=== PATIENT | female | born 1995 | race Caucasian/White ===

== ENCOUNTER → 2018-04-17 | Outpatient (CLI) | payer OTHER ==
--- NOTE | 2018-04-17 22:30 | MR ---
EXAMINATION TYPE: MR sacroiliac joints wo con DATE OF EXAM: 04/17/2018 COMPARISON: Prior MRI sacroiliac joints August 03, 2011 HISTORY: Sacroiliitis per order. Chronic pain per patient. Standard multiplanar, multisequence MRI departmental protocol Multiplanar, multisequence images of the pelvis focusing on the sacroiliac joints were acquired. FINDINGS: Sacroiliac joints 2 does show suspicious narrowing or widening. No significant spurring is seen. Bone marrow signal intensity is maintained without suspicious edema. Visualized sacral alae are intact. Visualized portion of the pelvis shows anteverted uterus. No concerning pelvic fluid collection is se en. No bowel dilatation is noted. IMPRESSION: No MRI evidence for sacroiliitis. No significant change from prior.
== END | disposition home or self-care (01) ==
LOC: RADMRIMAIN 21:35
PROVIDERS: ATTEND Physician Assistant Medical
DX: M46.1 Sacroiliitis, not elsewhere classified (principal)
CPT/HCPCS: 72195

== ENCOUNTER 2018-09-04 22:14 | Observation (INO) | payer OTHER ==
[2018-09-04] MEDS ORDERED: SODIUM CHLORIDE 0.9% 1,000 ML IV STA (22:48)
--- NOTE | 2018-09-04 22:48 | ED ---
Chest Pain HPI - General Chief Complaint: Chest Pain Stated Complaint: Chest/Abd pain Source: patient, RN notes reviewed, old records reviewed Mode of arrival: ambulatory - History of Present Illness Initial Comments: This is a 23-year-old female the ER today. Patient presents today with chest pain. Patient has history of chest pain history of fibromyalgia and occasionally smokes marijuana is on control. She recently did travel to urinate by plane. Patient denies fever no cough no congestion or shortness of breath. Pain is left-sided also into her abdomen left-sided chest. No prior history of sore pain. No modifying factors for pain MD Complaint: chest pain -: days(s) Onset: during rest, during exertion Pain Location: left chest Pain Radiation: abdomen Severity: moderate Severity scale (1-10): 5 Quality: aching Consistency: constant Improves With: nothing Worsens With: nothing Treatments Prior to Arrival: none - Related Data Home Medications Medication Instructions Recorded Confirmed Albuterol Inhaler [Ventolin Hfa 1 - 2 puff INHALATION RT-QID PRN 09/04/18 09/04/18 Inhaler] Setlakin 0.15/0.03 1 tab PO DAILY 09/04/18 09/04/18 Allergies Allergy/AdvReac Type Severity Reaction Status Date / Time clindamycin Allergy Dyspnea Verified 09/04/18 23:07 Penicillins Allergy Dyspnea Verified 09/04/18 23:07 sulfamethoxazole Allergy Dyspnea Verified 09/04/18 23:07 [From Bactrim] trimethoprim [From Bactrim] Allergy Dyspnea Verified 09/04/18 23:07 prednisone AdvReac Confusion Verified 09/04/18 23:07 Review of Systems ROS Statement: Those systems with pertinent positive or pertinent negative responses have been documented in the HPI. ROS Other: All systems not noted in ROS Statement are negative. EKG Findings - EKG Comments: EKG Findings:: EKG shows sinus tachycardia 4, HI 164, QRS 80, QTC 444 Past Medical History Past Medical History: Asthma Additional Past Medical History / Comment(s): fibromyaliga. Menners. spinal issue History of Any Multi-Drug Resistant Organisms: None Reported Past Surgical History: No Surgical Hx Reported Past Psychological History: No Psychological Hx Reported Smoking Status: Never smoker Past Alcohol Use History: Rare Past Drug Use History: Marijuana - Past Family History Mother Family Medical History: Asthma, Fibromyalgia General Exam General appearance: alert, in no apparent distress, anxious Head exam: Present: atraumatic, normocephalic, normal inspection Eye exam: Present: normal appearance, PERRL, EOMI. Absent: scleral icterus, conjunctival injection, periorbital swelling ENT exam: Present: normal exam, mucous membranes moist Neck exam: Present: normal inspection. Absent: tenderness, meningismus, lymphadenopathy Respiratory exam: Present: normal lung sounds bilaterally. Absent: respiratory distress, wheezes, rales, rhonchi, stridor Cardiovascular Exam: Present: normal rhythm, tachycardia, normal heart sounds. Absent: systolic murmur, diastolic murmur, rubs, gallop, clicks GI/Abdominal exam: Present: soft, normal bowel sounds. Absent: distended, tenderness, guarding, rebound, rigid Extremities exam: Present: normal inspection, full ROM, normal capillary refill. Absent: tenderness, pedal edema, joint swelling, calf tenderness Back exam: Present: normal inspection Neurological exam: Present: alert, oriented X3, CN II-XII intact Psychiatric exam: Present: normal affect, normal mood Skin exam: Present: warm, dry, intact, normal color. Absent: rash Course Vital Signs 09/04/18 09/05/18 22:26 00:31 Temperature 98.3 F 97.3 F L Pulse Rate 103 H 108 H Respiratory 18 17 Rate Blood Pressure 125/75 121/84 O2 Sat by Pulse 98 100 Oximetry - Reevaluation(s) Reevaluation #1: 09/04/18 23:41 Medical records reviewed Chest Pain MDM - MDM 23 female the ER, patient presents ER for evaluation of chest pain chest pain tachycardia. Patient be admitted for cardiac observation Disposition Clinical Impression: Chest pain, Tachycardia Disposition: ADMITTED IP TO THIS HOSP Condition: Good Is patient prescribed a controlled substance at d/c from ED?: No
[2018-09-04 23:45] LABS: Basophils % (A) 0 %; Eosinophils # (A) 0.1 k/uL (0-0.7); Eosinophils % (A) 1 %; HCT 35.9 % (34.0-46.0); HGB 11.5 gm/dL (11.4-16.0); Lymphocytes # (A) 1.4 k/uL (1.0-4.8); Lymphocytes % (A) 18 %; MCH 27.8 pg (25.0-35.0); MCV 86.9 fL (80.0-100.0); Mean Platelet Volume 7.4; Monocytes # (A) 0.5 k/uL (0-1.0); Monocytes % (A) 7 %; Neutrophils # (A) 5.7 k/uL (1.3-7.7); Neutrophils % (A) 71 %; Platelet Count 237 k/uL (150-450); RBC 4.13 m/uL (3.80-5.40); RDW 13.8 % (11.5-15.5); WBC 7.9 k/uL (3.8-10.6)
[2018-09-04 23:54] LABS: ALT 17 U/L (9-52); AST 18 U/L (14-36); Albumin 3.5 g/dL (3.5-5.0); Alkaline Phosphatase 36 U/L (38-126); Anion Gap 6 mmol/L; Blood Urea Nitrogen 6 mg/dL (7-17); Calcium 9.2 mg/dL (8.4-10.2); Carbon Dioxide 29 mmol/L (22-30); Chloride 104 mmol/L (98-107); Glucose 106 mg/dL (74-99); Lipase 179 U/L (23-300); Magnesium 1.9 mg/dL (1.6-2.3); Sodium 139 mmol/L (137-145); Total Bilirubin 0.3 mg/dL (0.2-1.3); Total Protein 6.4 g/dL (6.3-8.2)
[2018-09-05 00:01] LABS: INR 0.8 (<1.2); Partial Thromboplastin Time 24.7 sec (22.0-30.0); Prothrombin Time 9.4 sec (9.0-12.0)
--- NOTE | 2018-09-05 00:06 | CT ---
EXAM: CT Angiography Chest With Intravenous Contrast CLINICAL HISTORY: Pain. TECHNIQUE: Axial computed tomographic angiography images of the chest with intravenous contrast using pulmonary embolism protocol. MIP reconstructed images were created and reviewed. Coronal and sagittal reformatted images were created and reviewed. CTDI is 20.47 mGy and DLP is 718.4 mGy-cm. This CT exam was performed using one or more of the following dose reduction techniques: automated exposure control, adjustment of the mA and/or kV according to patient size, and/or use of iterative reconstruction technique. COMPARISON: No relevant prior studies available. FINDINGS: Pulmonary arteries: Unremarkable. No pulmonary embolism. Aorta: No acute findings. No thoracic aortic aneurysm or dissection. Lungs: Unremarkable. No mass. No consolidation. Pleural space: Unremarkable. No significant effusion. No pneumothorax. Heart: Unremarkable. No cardiomegaly. No significant pericardial effusion. No evidence of RV dysfunction. Bones/joints: No acute fracture. No dislocation. Soft tissues: Unremarkable. Lymph nodes: Unremarkable. No enlarged lymph nodes. IMPRESSION: Normal CTA of the chest. No pulmonary embolism, thoracic aortic aneurysm or dissection.
--- NOTE | 2018-09-05 00:11 | CT ---
EXAM: CT Abdomen and Pelvis With Intravenous Contrast CLINICAL HISTORY: Pain. TECHNIQUE: Axial computed tomography images of the abdomen and pelvis with intravenous contrast. Coronal and sagittal reformatted images were created and reviewed. CTDI is 20.47 mGy and DLP is 718.4 mGy-cm. This CT exam was performed using one or more of the following dose reduction techniques: automated exposure control, adjustment of the mA and/or kV according to patient size, and/or use of iterative reconstruction technique. COMPARISON: No relevant prior studies available. FINDINGS: Lung bases: Unremarkable. No mass. No consolidation. ABDOMEN: Liver: Unremarkable. No mass. Gallbladder and bile ducts: Unremarkable. No radiopaque calculi. No biliary ductal dilation. Pancreas: Unremarkable. No ductal dilation. No mass. No adjacent inflammatory changes. Spleen: Unremarkable. No splenomegaly. Adrenals: Unremarkable. No mass. Kidneys and ureters: Unremarkable. No hydronephrosis or ureteral calculus. No solid mass. Stomach and bowel: Fluid in the proximal colon which may indicate diarrheal state. Suspect areas of minimal bowel wall thickening. No bowel obstruction. PELVIS: Appendix: No findings to suggest acute appendicitis. Bladder: Unremarkable. No mass or wall thickening. Reproductive: Unremarkable as visualized. ABDOMEN and PELVIS: Intraperitoneal space: Unremarkable. No free air. No significant fluid collection. Bones/joints: No acute fracture. No dislocation. Soft tissues: Unremarkable. Vasculature: Unremarkable. No abdominal aortic aneurysm. Lymph nodes: Unremarkable. No enlarged lymph nodes. IMPRESSION: 1. Fluid in the proximal colon which may indicate diarrheal state along with suspected areas of minimal bowel wall thickening. Findings may represent nonspecific enteritis/enterocolitis in the appropriate clinical setting. Correlate clinically. 2. No bowel obstruction, free fluid or free air. 3. No evidence of acute appendicitis.
[2018-09-05] MEDS ORDERED: ASPIRIN 81 MG PO STA (00:25)
[2018-09-05] MEDS ORDERED: NITROGLYCERIN SL TABS 0.4 MG TAB SUBLINGUAL PRN (00:25)
[2018-09-05] MEDS ORDERED: SODIUM CHLORIDE 0.9% 1,000 ML IV STA (00:27)
[2018-09-05] MEDS ORDERED: KETOROLAC 30 MG/ML 1 ML VIAL IVP STA (00:27)
[2018-09-05] MEDS: SODIUM CHLORIDE 0.9% 1,000 ML IV SCH ×3 (02:38→20:30)
--- NOTE | 2018-09-05 09:18 | P.CRDCN ---
History of Present Illness History of present illness: Patient interviewed and examined. No cardiac murmurs or rub Abdominal symptoms and likely referred pain to the left scapula and shoulder Experiencing abdominal symptoms at this time Twelve-lead ECG shows normal sinus rhythm no evidence for pericarditis 2-D echo and Doppler study pending Follow-up with Dr. Candelario in 6 weeks Past Medical History Past Medical History: Asthma Additional Past Medical History / Comment(s): fibromyaliga. Meiniere's. ankylosing spondylitis History of Any Multi-Drug Resistant Organisms: None Reported Past Surgical History: No Surgical Hx Reported Past Anesthesia/Blood Transfusion Reactions: Unable to Obtain Additional Past Anesthesia/Blood Transfusion Reaction / Comment(s): Pt has never had surgery or blood transfusion Past Psychological History: No Psychological Hx Reported, Anxiety, Depression Smoking Status: Never smoker Past Alcohol Use History: Rare Past Drug Use History: Marijuana Additional Drug Use History / Comment(s): Last monday. - Past Family History Mother Family Medical History: Asthma, Fibromyalgia Medications and Allergies Home Medications Medication Instructions Recorded Confirmed Type Albuterol Inhaler [Ventolin Hfa 1 - 2 puff INHALATION RT-QID PRN 09/04/18 09/04/18 History Inhaler] Setlakin 0.15/0.03 1 tab PO DAILY 09/04/18 09/04/18 History Allergies Allergy/AdvReac Type Severity Reaction Status Date / Time clindamycin Allergy Dyspnea Verified 09/04/18 23:07 Penicillins Allergy Dyspnea Verified 09/04/18 23:07 sulfamethoxazole Allergy Dyspnea Verified 09/04/18 23:07 [From Bactrim] trimethoprim [From Bactrim] Allergy Dyspnea Verified 09/04/18 23:07 prednisone AdvReac Confusion Verified 09/04/18 23:07 Physical Exam Vitals: Vital Signs Temp Pulse Pulse Resp BP BP Pulse Ox 09/05/18 08:00 98.2 F 97 15 121/76 99 09/05/18 04:00 98.1 F 97 16 115/71 98 09/05/18 02:40 16 09/05/18 01:38 97.9 F 102 H 16 118/72 100 09/05/18 00:31 97.3 F L 108 H 17 121/84 100 09/04/18 22:26 98.3 F 103 H 18 125/75 98 Intake and Output 09/04/18 09/05/18 09/05/18 22:59 06:59 14:59 Other: Voiding Method Toilet # Voids 1 Weight 54.431 kg Results 09/04/18 23:09 09/04/18 23:09 Cardiac Enzymes 09/04/18 09/04/18 09/05/18 Range/Units 23:09 23:09 05:38 AST 18 (14-36) U/L Troponin I 0.027 0.021 (0.000-0.034) ng/mL Coagulation 09/04/18 Range/Units 23:09 PT 9.4 (9.0-12.0) sec APTT 24.7 (22.0-30.0) sec CBC 09/04/18 Range/Units 23:09 WBC 7.9 (3.8-10.6) k/uL RBC 4.13 (3.80-5.40) m/uL Hgb 11.5 (11.4-16.0) gm/dL Hct 35.9 (34.0-46.0) % Plt Count 237 (150-450) k/uL Comprehensive Metabolic Panel 09/04/18 Range/Units 23:09 Sodium 139 (137-145) mmol/L Potassium 4.0 (3.5-5.1) mmol/L Chloride 104 (98-107) mmol/L Carbon Dioxide 29 (22-30) mmol/L BUN 6 L (7-17) mg/dL Creatinine 0.61 (0.52-1.04) mg/dL Glucose 106 H (74-99) mg/dL Calcium 9.2 (8.4-10.2) mg/dL AST 18 (14-36) U/L ALT 17 (9-52) U/L Alkaline Phosphatase 36 L (38-126) U/L Total Protein 6.4 (6.3-8.2) g/dL Albumin 3.5 (3.5-5.0) g/dL Current Medications Generic Name Dose Route Start Last Admin Trade Name Freq PRN Reason Stop Dose Admin Sodium Chloride 1,000 mls @ 100 mls/hr 09/05/18 00:30 09/05/18 02:38 Saline 0.9% IV 100 mls/hr .Q10H BRIAN Administration Ibuprofen 400 mg 09/05/18 09:00 Motrin PO TID BRIAN Nitroglycerin 0.4 mg 09/05/18 00:25 Nitrostat SUBLINGUAL Q5M PRN Chest Pain Intake and Output 09/04/18 09/05/18 09/05/18 22:59 06:59 14:59 Other: Voiding Method Toilet # Voids 1 Weight 54.431 kg 09/04/18 23:09 09/04/18 23:09
[2018-09-05] MEDS: IBUPROFEN 400 MG TAB PO SCH ×3 (09:53→21:41)
--- NOTE | 2018-09-05 10:51 | ECHOF ---
Referral Reason:elevTrop MEASUREMENTS -------- HEIGHT: 165.1 cm WEIGHT: 54.4 kg BP: 115/71 RVIDd: 2.4 cm (< 3.3) IVSd: 0.7 cm (0.6 - 1.1) LVIDd: 3.7 cm (3.9 - 5.3) LVPWd: 0.9 cm (0.6 - 1.1) IVSs: 1.2 cm LVIDs: 2.2 cm LVPWs: 1.2 cm LA Diam: 2.5 cm (2.7 - 3.8) Ao Diam: 2.7 cm (2.0 - 3.7) AV Cusp: 1.7 cm (1.5 - 2.6) MV EXCURSION: 17.787 mm (> 18.000) MV EF SLOPE: 134 mm/s (70 - 150) EPSS: 0.5 cm MV E Julian: 0.92 m/s MV DecT: 228 ms MV A Julian: 0.74 m/s MV E/A Ratio: 1.25 RAP: 5.00 mmHg RVSP: 19.52 mmHg FINDINGS -------- Sinus rhythm. This was a technically excellent study. The left ventricular size is normal. Left ventricular wall thickness is normal. Overall left vent ricular systolic function is normal with, an EF between 65 - 70 %. The right ventricle is normal in size. The left atrial size is normal. The right atrium is normal in size. The aortic valve is trileaflet and appears structurally normal. Mild mitral regurgitation is present. Mild tricuspid regurgitation present. Right ventricular systolic pressure is normal at < 35 mmHg. There is no pulmonic regurgitation present. The aortic root size is normal. Normal inferior vena cava with normal inspiratory collapse consistent with estimated right atrial pre ssure of 5 mmHg. There is no pericardial effusion. CONCLUSIONS -------- 1. Sinus rhythm. 2. This was a technically excellent study. 3. The left ventricular size is normal. 4. Left ventricular wall thickness is normal. 5. Overall left ventricular systolic function is normal with, an EF between 65 - 70 %. 6. The right ventricle is normal in size. 7. The left atrial size is normal. 8. The right atrium is normal in size. 9. The aortic valve is trileaflet and appears structurally normal. 10. Mild mitral regurgitation is present. 11. Mild tricuspid regurgitation present. 12. Right ventricular systolic pressure is normal at < 35 mmHg. 13. There is no pulmonic regurgitation present. 14. The aortic root size is normal. 15. Normal inferior vena cava with normal inspiratory collapse consistent with estimated right atrial pressure of 5 mmHg. 16. There is no pericardial effusion. FOOD TECHNICIAN: Riri Caruso RDCS
[2018-09-05] MEDS ORDERED: ALBUTEROL NEBULIZED 2.5 MG/3 ML INHALATION PRN (15:27)
[2018-09-05 17:15] LABS: Amorphous Sediment,Urine Rare /hpf; Appearance,Urine Clear (Clear); Bilirubin,Urine Negative (Negative); Blood,Urine Small (Negative); Color,Urine Light Yellow; Glucose,Urine (UA) Negative (Negative); Ketones,Urine Negative (Negative); Leukocyte Esterase,Urine Negative (Negative); Mucus,Urine Rare /hpf; Nitrite,Urine Negative (Negative); Protein,Urine Negative (Negative); RBC,Urine 4 /hpf (0-5); Specific Gravity,Urine 1.007 (1.001-1.035); Squamous Epithelial Cell,Urine <1 /hpf (0-4); Urobilinogen,Urine <2.0 mg/dL (<2.0); WBC,Urine 1 /hpf (0-5)
[2018-09-05 17:20] LABS: Amphetamine Screen,Urine Not Detected (NotDetected); Barbiturate Screen,Urine Not Detected (NotDetected); Benzodiazepines Screen,Urine Not Detected (NotDetected); Cocaine Screen,Urine Not Detected (NotDetected); Methadone Screen, Urine Not Detected (NotDetected); Opiate Screen,Urine Not Detected (NotDetected); Oxycodone Screen, Urine Not Detected (NotDetected); Phencyclidine Screen,Urine Not Detected (NotDetected); Tricyclic Antidepressant,Urine Not Detected (NotDetected); Urn Cannabinoid Scrn Not Detected (NotDetected)
--- NOTE | 2018-09-05 17:40 | HP ---
HISTORY AND PHYSICAL CHIEF COMPLAINTS: Chest pain and diarrhea. HISTORY OF PRESENT ILLNESS: This 23-year-old woman with a past medical history of IBS, inflammatory bowel disease, history of Meniere's, ankylosing spondylitis, fibromyalgia, asthma, being followed by Dr. Luke in the outpatient setting, was complaining of left-sided chest pain and tachycardia. The patient came to [facility] and was admitted for further evaluation and treatment. Patient also complains of abdominal discomfort and diarrhea. The patient apparently went to a concert in [place] recently and ate some Czech food, according to her. There is no history of any fever, rigor or chills. No history of headache, loss of consciousness, seizures. The pain is reported as sharp in character and radiates to the shoulder. A CT scan of the abdomen and pelvis was done. A 2D echo was also done after admission. The CT scan showed fluid in the proximal colon, which indicates some minimal bowel wall thickening. The patient was admitted for further evaluation. There is no history of any fever, rigors or chills at this time. Third troponin was found to be 0.099. The patient is being closely monitored. PAST MEDICAL HISTORY: 1. Inflammatory bowel disease. 2. History of asthma. 3. Fibromyalgia. 4. Meniere's. 5. Ankylosing spondylitis. 6. Anxiety. 7. Depression. 8. History of THC. MEDICATIONS: Medications prior to admission include: 1. Setlakin. 2. Albuterol inhaler p.r.n. ALLERGIES: 1. CLINDAMYCIN. 2. PENICILLIN. 3. SULFAMETHOXAZOLE. 4. PREDNISONE. FAMILY HISTORY: History of asthma, fibromyalgia in the family. SOCIAL HISTORY: History of occasional alcohol, THC. No history of smoking. REVIEW OF SYSTEMS: ENT: No diminished hearing. No diminished vision. CARDIOVASCULAR SYSTEM: As mentioned earlier. RESPIRATORY SYSTEM: No cough, hemoptysis. GI: As mentioned earlier. : No dysuria or retention. NERVOUS SYSTEM: No numbness, weakness. ALLERGY/IMMUNOLOGY: No asthma, hayfever. MUSCULOSKELETAL: As mentioned earlier. HEMATOLOGY/ONCOLOGY: No history of anemia. ENDOCRINE: No history of diabetes, hypothyroidism. CONSTITUTIONAL: As mentioned earlier. DERMATOLOGY: Negative. RHEUMATOLOGY: Negative. PSYCHIATRY: As mentioned earlier. PHYSICAL EXAMINATION: Alert and oriented x3. Pulse is 97, blood pressure 121/76, respiration 15, temperature 98.2, pulse ox 99% on room air. HEENT: Conjunctivae normal. NECK: No jugular venous distention. CARDIOVASCULAR SYSTEM: S1, S2 muffled. RESPIRATORY SYSTEM: Breath sounds diminished at the bases. No rhonchi. No crackles. ABDOMEN: Soft, non-tender. No mass palpable. No guarding or rigidity. LEGS: No edema. No swelling. NERVOUS SYSTEM: Higher functions as mentioned earlier. Moves all 4 limbs. No focal motor or sensory deficit. LYMPHATICS: No lymph node palpable in neck, axillae or groin. SKIN: No ulcer, rash, bleeding. JOINTS: No active deforming arthropathy. LABS: CBC within normal limits. D-dimer is 1. Glucose 106. Troponin 0.099. CT scan of abdomen and pelvis noted. CT angio was negative for pulmonary embolism. The EKG showed sinus tachycardia, no acute abnormalities. ASSESSMENT: 1. Chest pain with troponin 0.099. Rule out acute non ST elevation myocardial infarction. 2. Diarrhea with inflammatory bowel disease. 3. History of asthma. 4. History of fibromyalgia. 5. History Meniere's disease. 6. History of ankylosing spondylitis. 7. History of anxiety, depression. 8. History of tetrahydrocannabinol. RECOMMENDATIONS AND DISCUSSION: In this 23-year-old woman who presented with multiple complex medical issues, we will monitor the patient closely, continue the current management, continue with symptomatic treatment. Otherwise at this time I recommend closely following with Cardiology. Possible stress test. Symptomatic treatment. Otherwise, I would also check stool for C difficile and continue to monitor. Prognosis guarded because of multiple complex medical issues. A copy of this dictation is being forwarded to Dr. Luke, who is the primary physician. MMODL / IJN: [id number] / MTDD
[2018-09-06 03:52] LABS: Cholesterol 109 mg/dL (<200); HDL Cholesterol 43 mg/dL (40-60); LDL Cholesterol,Calculated 51 mg/dL (0-99); Triglycerides 75 mg/dL (<150)
[2018-09-06] MEDS: SODIUM CHLORIDE 0.9% 1,000 ML IV SCH (05:38)
[2018-09-06 07:23] VITALS: RESP 16
[2018-09-06] MEDS: IBUPROFEN 400 MG TAB PO SCH ×2 (08:20→10:05)
[2018-09-06] MEDS ORDERED: ASPIRIN 325 MG TAB PO SCH (09:00)
--- NOTE | 2018-09-06 09:37 | P.PN ---
Subjective This is a pleasant 23-year-old female past medical history significant for fibromyalgia, irritable bowel syndrome and chronic daily marijuana use. She was seen and examined yesterday due to a 12-hour episode of chest pain. Her symptoms were atypical for angina and thought to be associated with an abdominal process in the presence of abdominal pain and diarrhea. Incidentally her third troponin came back to be elevated at 0.099. We ordered a fourth that was 0.193. She states she did have another episode of chest discomfort last night. An EKG was obtained and revealed normal sinus mechanism with no acute ST or T wave abnormalities noted. Her pain came at rest no specific aggravating factor and lasted for approximately 30 minutes subsiding on its own. Blood pressure 102/65 heart rate 92 afebrile maintaining oxygen saturation on room air. Urine toxicology screen was unremarkable. GENERAL: This is a 23-year-old female in no apparent distress at the time of my examination. HEENT: Head is atraumatic, normocephalic. Pupils are equal, round. Sclerae anicteric. Conjunctivae are clear. Mucous membranes of the mouth are moist. Neck is supple. There is no jugular venous distention. No carotid bruit is heard. LUNGS: Clear to auscultation no wheezes, rales or rhonchi. No chest wall tenderness is noted on palpation or with deep breathing. HEART: Regular rate and rhythm without murmurs, rubs or gallops. S1 and S2 heard. EXTREMITIES: No evidence of peripheral edema and no calf tenderness noted. ASSESSMENT Chest pain, atypical for angina with mild troponin elevation of unclear significance. Abdominal discomfort with nausea and diarrhea. Resolved. History of irritable bowel syndrome Fibromyalgia PLAN Perform stress echocardiogram to assess for stress induced ischemia. Check CRP and sedimentation rate. Nurse Practitioner note has been reviewed, I agree with a documented findings and plan of care. Patient was seen and examined. Objective - Vital Signs Vital signs: Vital Signs Temp 97.6 F 09/06/18 07:00 Pulse 92 09/06/18 07:00 Resp 16 09/06/18 07:00 BP 102/65 09/06/18 07:00 Pulse Ox 98 09/06/18 07:00 Intake & Output 09/05/18 09/06/18 09/06/18 18:59 06:59 18:59 Intake Total 876 1700 Balance 876 1700 Intake: Intake, IV Titration 900 Amount Sodium Chloride 0.9% 1, 900 000 ml @ 100 mls/hr IV . Q10H [facility] Rx#:[id number] Oral 676 500 Blood Product 300 Other 200 Other: Voiding Method Toilet Toilet # Voids 1 - Labs CBC & Chem 7: 09/04/18 23:09 09/04/18 23:09 Labs: Abnormal Lab Results - Last 24 Hours (Table) 09/05/18 09/05/18 09/05/18 Range/Units 10:51 16:55 17:58 Troponin I 0.099 H* 0.193 H* (0.000-0.034) ng/mL Urine Blood Small H (Negative) Amorphous Sediment Rare H (None) /hpf Urine Mucus Rare H (None) /hpf
[2018-09-06 11:27] VITALS: BP 112/77; PULSE 110; TEMP 98.3
--- NOTE | 2018-09-06 14:40 | P.DS ---
Providers Date of admission: 09/05/18 00:26 Attending physician: Valerie Mack Consults: 09/05/18 00:25 Consult Physician Urgent Consulting Provider: Heidy Romero Consult Reason/Comments: cp Do you want consulting provider notified?: Yes Primary care physician: Carolin Luke Hospital Course: Patient is admitted for chest pain with minimally elevated troponins in a pattern noncardiac chest pain because of mild troponin elevation patient underwent further cardio workup and patient underwent stress test which was negative for any inducible ischemia. Patient is clinically doing well patient pain is well-controlled with ibuprofen although it made her have some acid reflux symptoms for which asked her to take [id number] Zantac if needed and use Tylenol Extra Strength instead of ibuprofen for pain. Patient is otherwise clinically doing well will be discharged today. PHYSICAL EXAMINATION: GENERAL: The patient is alert and oriented x3, not in any acute distress. Well developed, well nourished. HEENT: Pupils are round and equally reacting to light. EOMI. No scleral icterus. No conjunctival pallor. Normocephalic, atraumatic. No pharyngeal erythema. No thyromegaly. CARDIOVASCULAR: S1 and S2 present. No murmurs, rubs, or gallops. PULMONARY: Chest is clear to auscultation, no wheezing or crackles. ABDOMEN: Soft, nontender, nondistended, normoactive bowel sounds. No palpable organomegaly. MUSCULOSKELETAL: No joint swelling or deformity. EXTREMITIES: No cyanosis, clubbing, or pedal edema. NEUROLOGICAL: Gross neurological examination did not reveal any focal deficits. SKIN: No rashes. For hospitalization course, her other chronic medical problems that were addressed during this hospitalization please refer to progress note/H&P from Dr. Mack from yesterday Patient Condition at Discharge: Good Plan - Discharge Summary Discharge Rx Participant: No New Discharge Prescriptions: Continue Setlakin 0.15/0.03 1 tab PO DAILY Albuterol Inhaler [Ventolin Hfa Inhaler] 1 - 2 puff INHALATION RT-QID PRN PRN Reason: Shortness Of Breath Discharge Medication List Albuterol Inhaler [Ventolin Hfa Inhaler] 1 - 2 puff INHALATION RT-QID PRN 09/04/18 [History] Setlakin 0.15/0.03 1 tab PO DAILY 09/04/18 [History] Follow up Appointment(s)/Referral(s): Ayush Miramontes MD [STAFF PHYSICIAN] - 09/26/18 8:45 am (follow up with Pamela MARTINEZ) Carolin Luke MD [Primary Care Provider] - 1-2 days Patient Instructions/Handouts: Chest Pain (DC) Activity/Diet/Wound Care/Special Instructions: No exercise or intense physical exertion for 2 weeks. Discharge Disposition: HOME SELF-CARE
--- NOTE | 2018-09-07 11:43 | P.STRESS ---
- Stress Test Note Stress Test Results/Findings: Exam Performed: stress echo exercise with con Exam Date: 09/06/18 Reason for Exam: CHEST PAIN Height: 5 ft 5 in Weight: 54.431 kg Protocol: STRESS ECHO Stage: III Duration of Exercise: 8:00 Resting Heart Rate: 101 Resting Blood Pressure: 113/64 Maximum Achieved Heart Rate: 186 Maximum Achieved Blood Pressure: 136/60 85% PMHR: 166 100% PMHR: 195 METS: 9.5 Technologist Comment: Stress Test Results/Findings: Baseline heart rate 100 beats a minute Baseline blood pressure 130/64 mmHg Patient exercised on a Boaz protocol for 8 minutes Baseline twelve-lead ECG was normal There was no ECG is for ischemia no arrhythmias are noted baseline 2-D echo images showed normal LV systolic function without segmental wall motion abnormalities. Definity contrast was used There was no echocardiographic evidence for ischemia Excellent augmentation of oral LV contractility without development any wall motion abnormalities Impression Low average exercise capacity of only 8 minutes on a Boaz protocol No ECG evidence of ischemia No echocardiographic evidence for ischemia
== END 2018-09-06 13:21 | disposition home or self-care (01) ==
LOC: EC 22:14 → 1SOBS 09-05 00:26
PROVIDERS: ADMIT Hospitalist; ATTEND Hospitalist
DX: R07.89 Other chest pain (principal); R10.9 Unspecified abdominal pain; M79.7 Fibromyalgia; J45.909 Unspecified asthma, uncomplicated; M25.512 Pain in left shoulder; R00.0 Tachycardia, unspecified; H81.09 Meniere's disease, unspecified ear; M45.9 Ankylosing spondylitis of unspecified sites in spine; K58.0 Irritable bowel syndrome with diarrhea; K21.9 Gastro-esophageal reflux disease without esophagitis; F32.9 Major depressive disorder, single episode, unspecified; F41.9 Anxiety disorder, unspecified; R77.8 Other specified abnormalities of plasma proteins; Z79.3 Long term (current) use of hormonal contraceptives; Z79.899 Other long term (current) drug therapy; Z88.0 Allergy status to penicillin; Z88.1 Allergy status to other antibiotic agents; Z88.2 Allergy status to sulfonamides; Z88.8 Allergy status to other drugs, medicaments and biological substances
CPT/HCPCS: 96361 ×4; 96374; 99285; 36415; 93005; 93306; 93351; 85379; 83880; 80061; 80053; 85652; 83690; 83735; 84484 ×2; 85025; 85610; 85730; 86140; 81001; 80306; 71275; 74177; G0378 ×2; J1885; Q9950; Q9967

== ENCOUNTER → 2020-07-28 | Outpatient (CLI) | payer OTHER ==
--- NOTE | 2020-07-28 14:12 | MR ---
EXAMINATION TYPE: MR lumbar spine wo con DATE OF EXAM: 07/28/2020 COMPARISON: CT 09/04/2018 HISTORY: Low back pain and bilateral leg weakness for several years. TECHNIQUE: Multiplanar, multisequence images of the lumbar spine were acquired. L1-L2: Normal disc appearance without desiccation. No herniation, protrusion or disc bulging. No ca nal stenosis is present. Foramina are patent bilaterally. L2-L3: Normal disc appearance without desiccation. No herniation, protrusion or disc bulging. No ca nal stenosis is present. Foramina are patent bilaterally. Probable Schmorl's node superior endplate L3 L3-L4: Normal disc appearance without desiccation. No herniation, protrusion or disc bulging. No ca nal stenosis is present. Foramina are patent bilaterally. L4-L5: Normal disc appearance without desiccation. No herniation, protrusion or disc bulging. No ca nal stenosis is present. Foramina are patent bilaterally. There is some mild facet arthropathy zhu e. L5-S1: Circumferential extension endplate disc complex may encroach upon the neural foramen on the ri ght. Lumbar segments are intact. No paraspinal masses are identified. Conus medullaris has a normal appe arance. There is no significant spinal stenosis. IMPRESSION: There may be some foraminal encroachment is mild as described at L5-S1, mild facet arthropathy change , no sizable disc herniation
== END | disposition home or self-care (01) ==
LOC: RADMRIMAIN 09:04
PROVIDERS: ATTEND Psychiatry & Neurology Neurology
DX: M54.40 Lumbago with sciatica, unspecified side (principal)
CPT/HCPCS: 72148

== ENCOUNTER → 2020-08-25 | Outpatient (CLI) | payer OTHER ==
--- NOTE | 2020-08-25 15:31 | MR ---
EXAMINATION TYPE: MR brain wo con DATE OF EXAM: 08/25/2020 COMPARISON: Prior MRI brain November 14, 2013 HISTORY: R20.0, R29.898, H53.9, M54.40 all per order. TECHNIQUE: Multiplanar, multisequence imaging of the brain and brainstem is performed without IV cont rast. FINDINGS: Diffusion weighted images demonstrate no evidence of a recent infarct or other diffusion abnormality. There is no extraaxial fluid collection or significant white matter signal abnormality. The ventricu lar system and cisternal spaces are normal in size and appearance. The brain volume is age appropria te. Midline structures demonstrate normal morphology. The craniocervical junction appears within normal limits. Normal vascular flow voids are present. The visualized sinuses are clear and the globes are i ntact. IMPRESSION: Unremarkable study.
== END | disposition home or self-care (01) ==
LOC: RADMRIMAIN 14:23
PROVIDERS: ATTEND Psychiatry & Neurology Neurology
DX: R20.0 Anesthesia of skin (principal)
CPT/HCPCS: 70551

== ENCOUNTER → 2020-10-13 | Outpatient (CLI) | payer OTHER ==
--- NOTE | 2020-10-13 17:53 | MR ---
MRI CERVICAL SPINE: CLINICAL HISTORY: Neck pain, right arm numbness and weakness. TECHNIQUE: Multiplanar, multisequence imaging of the cervical spine is performed without IV contrast. COMPARISON: None. FINDINGS: Sagittal images of the cervical spine show the craniocervical junction to appear within nor mal limits. The cervical and upper thoracic spinal cord is normal in course, caliber, and signal. Sl ight grade 1 retrolisthesis C5-C6. The vertebral body and intravertebral disk heights are normal. T he bone marrow signal intensity is within normal limits. Axial images show there is no significant focal disk disease, spinal canal stenosis, neural foraminal narrowing, or spinal cord compromise at any cervical level. IMPRESSION: Fairly unremarkable study.
== END | disposition home or self-care (01) ==
LOC: RADMRIMAIN 16:24
PROVIDERS: ATTEND Psychiatry & Neurology Neurology
DX: M54.2 Cervicalgia (principal)
CPT/HCPCS: 72141

== ENCOUNTER 2021-03-30 22:32 | Emergency (ER) | payer OTHER ==
[2021-03-30 22:42] VITALS: BP 156/94; PULSE 103; RESP 20; TEMP 98.5
[2021-03-31 01:08] LABS: Appearance,Urine Clear (Clear); Bacteria,Urine Rare /hpf; Bilirubin,Urine Negative (Negative); Blood,Urine Small (Negative); Color,Urine Light Yellow; Glucose,Urine (UA) Negative (Negative); Ketones,Urine Negative (Negative); Leukocyte Esterase,Urine Negative (Negative); Mucus,Urine Rare /hpf; Nitrite,Urine Negative (Negative); Protein,Urine Negative (Negative); RBC,Urine 5 /hpf (0-5); Specific Gravity,Urine 1.014 (1.001-1.035); Squamous Epithelial Cell,Urine <1 /hpf (0-4); Urobilinogen,Urine <2.0 mg/dL (<2.0); WBC,Urine <1 /hpf (0-5)
[2021-03-31 01:23] LABS: Amphetamine Screen,Urine Not Detected (NotDetected); Barbiturate Screen,Urine Not Detected (NotDetected); Benzodiazepines Screen,Urine Not Detected (NotDetected); Cocaine Screen,Urine Not Detected (NotDetected); Methadone Screen, Urine Not Detected (NotDetected); Opiate Screen,Urine Not Detected (NotDetected); Oxycodone Screen, Urine Not Detected (NotDetected); Phencyclidine Screen,Urine Not Detected (NotDetected); Tricyclic Antidepressant,Urine Not Detected (NotDetected); Urn Cannabinoid Scrn Not Detected (NotDetected)
[2021-03-31] MEDS ORDERED: diphenhydrAMINE 50 MG/ML 1 ML VIAL IM STA (01:58)
--- NOTE | 2021-03-31 01:58 | ED ---
Recheck HPI - General Chief Complaint: Recheck/Abnormal Lab/Rx Stated Complaint: medication reaction Time Seen by Provider: 03/30/21 23:56 Source: patient Mode of arrival: wheelchair Limitations: no limitations - History of Present Illness Initial Comments: 25 year old female patient presents to the emergency Department with multiple symptoms. States she started taking trazodone 25 mg nightly about 2 weeks ago. States on Monday she started having dizziness, feeling "out of it", nausea, body swelling. States she's been feeling very fatigued and tired. This is a first time she ever has taken this medication. She denies any chance of . Denies fever or chills. Denies any cough or congestion. She denies any vomiting or diarrhea. Denies any use of street drugs. States she did have an alcoholic beverage on Monday which is when her symptoms started. She has not contacted her physician regarding her symptoms. - Related Data Home Medications Medication Instructions Recorded Confirmed Albuterol Inhaler (Mhu) [Ventolin 1 - 2 puff INHALATION RT-QID PRN 09/04/18 09/04/18 Hfa Inhaler (Mhu)] Setlakin 0.15/0.03 1 tab PO DAILY 09/04/18 09/04/18 Allergies Allergy/AdvReac Type Severity Reaction Status Date / Time clindamycin Allergy Dyspnea Verified 03/30/21 22:37 Penicillins Allergy Dyspnea Verified 03/30/21 22:37 sulfamethoxazole Allergy Dyspnea Verified 03/30/21 22:37 [From Bactrim] trimethoprim [From Bactrim] Allergy Dyspnea Verified 03/30/21 22:37 prednisone AdvReac Confusion Verified 03/30/21 22:37 Review of Systems ROS Statement: Those systems with pertinent positive or pertinent negative responses have been documented in the HPI. ROS Other: All systems not noted in ROS Statement are negative. Past Medical History Past Medical History: Asthma Additional Past Medical History / Comment(s): fibromyaliga. Menners. spinal issue History of Any Multi-Drug Resistant Organisms: None Reported Past Surgical History: No Surgical Hx Reported Past Anesthesia/Blood Transfusion Reactions: Unable to Obtain Additional Past Anesthesia/Blood Transfusion Reaction / Comment(s): Pt has never had surgery or blood transfusion Past Psychological History: Anxiety, Depression Smoking Status: Never smoker Past Alcohol Use History: Rare Past Drug Use History: Marijuana - Past Family History Mother Family Medical History: Asthma, Fibromyalgia General Exam Limitations: no limitations General appearance: alert, in no apparent distress, other (This is a well- developed, well-nourished adult female in no acute distress.) ENT exam: Present: normal exam, normal oropharynx, mucous membranes moist Respiratory exam: Present: normal lung sounds bilaterally. Absent: respiratory distress, wheezes, rales, rhonchi, stridor Cardiovascular Exam: Present: regular rate, normal rhythm, normal heart sounds. Absent: systolic murmur, diastolic murmur, rubs, gallop, clicks GI/Abdominal exam: Present: soft, normal bowel sounds. Absent: distended, tenderness, guarding, rebound, rigid Neurological exam: Present: alert, oriented X3, CN II-XII intact Psychiatric exam: Present: normal affect, normal mood Skin exam: Present: warm, dry, intact, normal color. Absent: rash Course Vital Signs 03/30/21 22:37 Temperature 98.5 F Pulse Rate 103 H Respiratory 20 Rate Blood Pressure 156/94 O2 Sat by Pulse 100 Oximetry Medical Decision Making - Medical Decision Making 25-year-old female patient presents with multiple symptoms after starting a new medication. Physical examination is unremarkable. EKG is unremarkable. Urinalysis is normal, negative, drug screen negative. She tested negative for COVID-19. She is given a dose of Benadryl for symptom relief. She is instructed to contact her physician tomorrow for further instructions regarding the medication. She is urged not to take the medication until she has spoken to her physician. Return parameters were discussed in detail. She verbalizes understanding and agrees with this plan. My attending is Dr. Dsouza. - Lab Data Lab Results 03/31/21 03/31/21 03/31/21 Range/Units 00:53 00:53 00:53 Urine Color Light Yellow Urine Appearance Clear (Clear) Urine pH 7.0 (5.0-8.0) Ur Specific [place] 1.014 (1.001-1.035) Urine Protein Negative (Negative) Urine Glucose (UA) Negative (Negative) Urine Ketones Negative (Negative) Urine Blood Small H (Negative) Urine Nitrite Negative (Negative) Urine Bilirubin Negative (Negative) Urine Urobilinogen <2.0 (<2.0) mg/dL Ur Leukocyte Esterase Negative (Negative) Urine RBC 5 (0-5) /hpf Urine WBC <1 (0-5) /hpf Ur Squamous Epith Cells <1 (0-4) /hpf Urine Bacteria Rare H (None) /hpf Urine Mucus Rare H (None) /hpf Urine HCG, Qual Not Detected (Not Detectd) Urine Opiates Screen Not Detected (NotDetected) Ur Oxycodone Screen Not Detected (NotDetected) Urine Methadone Screen Not Detected (NotDetected) Ur Propoxyphene Screen Not Detected (NotDetected) Ur Barbiturates Screen Not Detected (NotDetected) U Tricyclic Antidepress Not Detected (NotDetected) Ur Phencyclidine Scrn Not Detected (NotDetected) Ur Amphetamines Screen Not Detected (NotDetected) U Methamphetamines Scrn Not Detected (NotDetected) U Benzodiazepines Scrn Not Detected (NotDetected) Urine Cocaine Screen Not Detected (NotDetected) U Marijuana (THC) Screen Not Detected (NotDetected) Coronavirus (PCR) Not Detected (Not Detectd) - EKG Data -: EKG Interpreted by Md EKG Comments: EKG obtained at 0046 shows normal sinus rhythm with a ventricular rate is 74, MI interval 166, QRS duration 76, QT 380, QTc 421. No ST elevation or depression. Disposition Clinical Impression: Medication reaction Disposition: HOME SELF-CARE Condition: Good Instructions (If sedation given, give patient instructions): Adverse Drug Reaction (ED) Additional Instructions: Stopped taking trazodone. Follow-up with your primary care physician tomorrow for further instructions. Return for any new, worsening, or concerning symptoms. Is patient prescribed a controlled substance at d/c from ED?: No Referrals: Carolin Luke MD [Primary Care Provider] - 1-2 days Time of Disposition: 01:58
== END 2021-03-31 02:18 | disposition home or self-care (01) ==
LOC: EC 22:32
DX: R42 Dizziness and giddiness (principal); R53.83 Other fatigue; R11.0 Nausea; Z20.822 Contact with and (suspected) exposure to COVID-19; T43.215A Adverse effect of selective serotonin and norepinephrine reuptake inhibitors, initial encounter; J45.909 Unspecified asthma, uncomplicated; F12.90 Cannabis use, unspecified, uncomplicated; Z79.51 Long term (current) use of inhaled steroids; Z88.0 Allergy status to penicillin; Z88.2 Allergy status to sulfonamides; Z88.1 Allergy status to other antibiotic agents; Z88.8 Allergy status to other drugs, medicaments and biological substances
CPT/HCPCS: 93005; 81001; 81025; 80306; 87635; 99284; 96372; J1200

== ENCOUNTER → 2021-08-11 | Outpatient (CLI) | payer OTHER ==
--- NOTE | 2021-08-11 19:38 | CONS ---
CONSULTATION DATE OF SERVICE: 08/11/2021 This 26-year-old lady has been evaluated in Sleep Center for significant excessive daytime sleepiness with difficulties initiating sleep and multiple awakenings from sleep. HISTORY OF PRESENT ILLNESS/SLEEP-WAKE EVALUATION: The patient's usual sleep schedule is from 1 or 2 a.m. until 10 a.m. She does have problems with falling asleep and has a TV set in the bedroom. She sleeps in different positions. According to the patient, she does not snore. She has a positive history of possibly hypnagogic hallucinations, vivid dreams while she is in the process of falling asleep. Sometimes she has eze-ww-vbhxd movements. During the night, she may have some twitching of her legs. No history of sleep paralysis or cataplexy. No clear episodes of changing of breathing during sleep. The patient may have one episode of nocturia at nighttime. In the morning the patient wakes up tired, has problems with tension, memory, concentration, irritability, depression. She takes one nap in the afternoon for 3 or 4 hours. [place] Sleepiness Scale is in very high range at 17. PAST MEDICAL HISTORY: Positive for headaches, fibromyalgia, asthma, sinus problems, Meniere's disease, depression, anxiety. PAST SURGICAL HISTORY: Tooth extraction. MEDICATIONS: Sumatriptan, propranolol, temazepam, control pills. FAMILY HISTORY: Fibromyalgia, asthma, sinus problems, narcolepsy in her grandmother, diabetes, thyroid problems, headaches. REVIEW OF SYSTEMS: Difficulties initiating sleep, multiple awakenings from sleep, sleepiness during the day. No fevers. No double vision. No recent chest pain. No shortness of breath. No abdominal pain. No bleeding episodes. No blood in the urine. No seizure episodes. SOCIAL HISTORY: The patient does not smoke cigarettes. Smokes marijuana occasionally. Alcohol consumption occasional. PHYSICAL EXAMINATION: GENERAL: Pleasant lady without distress. VITAL SIGNS: BP 118/75, HR 89, RR 18, height 5 feet 5 inches, weight 154.6 pounds, body mass index 25.6, temperature 97.3, oxygen saturation at room air 99%. HEENT: PERRLA, EOMI, evaluation of oropharynx showed tongue protrudes midline. Low position of soft palate; Mallampati III to IV. NECK: Supple, no JVD. Thyroid is not palpable. Neck measures 14-1/8 inches in circumference. LUNGS: Clear to percussion and to auscultation. Good air exchange. No wheezing or rhonchi. HEART: S1, S2 regular. No murmurs, gallops, or rubs. ABDOMEN: Soft and nontender. Bowel sounds are present. No organomegaly appreciated. EXTREMITIES: No clubbing or cyanosis. NUCLEAR POWER PLANT ENGINEER: Awake, alert, and oriented X3. Cranial nerves 2 to 7 intact. There is no fasciculation or atrophy. noted. No focal deficits observed. IMPRESSION: 1. Significant excessive daytime sleepiness, [place] Sleepiness Scale of 17, positive history of hypnagogic hallucinations; possible narcolepsy without cataplexy. 2. History of twitching extremities during the night; possibly periodic limb movements. 3. History of lmm-lw-llwlr movements; possibly REM sleep behavioral disorder. 4. Low position of soft palate, multiple awakenings from sleep. Rule out obstructive sleep apnea-hypopnea syndrome. 5. Headaches. 6. History of fibromyalgia. 7. Asthma. 8. History of sinusitis. 9. History of Meniere's disease. 10.History of depression. 11.History of anxiety. PLAN: 1. Polysomnography followed by a multiple sleep latency test for evaluation of patient's symptoms of significant excessive daytime sleepiness for diagnosis of possible narcolepsy and to check for possibility of REM sleep behavioral disorder, periodic limb movements, and any breathing changes during sleep. 2. Sleep hygiene with regular time in bed for at least 8 hours. 3. Precautions related to driving. No driving if feeling any sleepiness. The patient promised to follow recommendations. 4. Preferably avoid long naps during the day because that could be one of the reasons why patient cannot fall asleep at night. 5. Following plan after reviewing results of sleep studies. Thank you very much for referring this patient for consultation. Sincerely, Harshal Elaine MD, PhD, FAASM Diplomat of [employer] [employer] Sleep Medicine Board of [place] [employer] Clinical Education Consultant of [facility] [place] MMRASHMIL / ALEJANDRAN: [id number] /
== END ==
LOC: SLEEP 15:37
PROVIDERS: ATTEND Internal Medicine
DX: G47.10 Hypersomnia, unspecified (principal); Z87.898 Personal history of other specified conditions; Z87.39 Personal history of other diseases of the musculoskeletal system and connective tissue; J45.909 Unspecified asthma, uncomplicated; F32.A Depression, unspecified; F41.9 Anxiety disorder, unspecified; Z87.09 Personal history of other diseases of the respiratory system; Z86.69 Personal history of other diseases of the nervous system and sense organs; Z88.1 Allergy status to other antibiotic agents; Z88.0 Allergy status to penicillin; Z88.2 Allergy status to sulfonamides; Z88.8 Allergy status to other drugs, medicaments and biological substances
CPT/HCPCS: 99211

== ENCOUNTER → 2021-09-15 | Outpatient (CLI) | payer OTHER ==
--- NOTE | 2021-09-15 19:14 | SFUN ---
SLEEP CENTER FOLLOW UP NOTE DATE OF SERVICE: 09/15/2021 This 26-year-old lady has been followed in Sleep Center for treatment of significant excessive daytime sleepiness. Recently the patient had a polysomnogram with a following multiple sleep latency test, and I discussed the results of these sleep studies with the patient in detail. No significant respiratory abnormalities were documented. No periodic limb movements. MSLT confirmed sleepiness with two sleep-onset REM periods. The patient continues to feel sleepy. [place] Sleepiness Scale increased to 18. CURRENT MEDICATIONS: Sumatriptan, propranolol, temazepam at bedtime, control pills. PHYSICAL EXAMINATION: GENERAL: Pleasant patient in no distress. VITAL SIGNS: BP 118/66, HR 83, RR 14, temperature 97.5. HEENT: PERRLA, EOMI, evaluation of oropharynx showed tongue protrudes midline. NECK: Supple, no JVD. Thyroid is not palpable. LUNGS: Clear to percussion and to auscultation. Good air exchange. No wheezing or rhonchi. HEART: S1, S2 regular. No murmurs, gallops, or rubs. ABDOMEN: Soft and nontender. Bowel sounds are present. No organomegaly appreciated. EXTREMITIES: No clubbing or cyanosis. CLINICAL NURSE OCCUPATIONAL MEDICINE: Awake, alert, and oriented X3. Cranial nerves 2 to 7 intact. There is no fasciculation or atrophy. noted. No focal deficits observed. IMPRESSION: 1. Narcolepsy, type 2, without cataplexy, confirmed by multiple sleep latency test. Mean sleep latency 6.4 minutes. Two sleep-onset REM periods were documented. 2. No respiratory abnormalities during the sleep study. 3. No periodic limb movements. 4. Headaches. 5. History of fibromyalgia. 6. Asthma. 7. History of sinusitis. 8. History of Meniere's disease. 9. History of depression. 10.History of anxiety. PLAN: 1. Patient will be started on small doses of Adderall 5 mg at 9 a.m. and 1 p.m. to prevent symptoms of excessive daytime sleepiness. 2. Sleep hygiene with regular time in bed for at least 8 hours. 3. Daytime naps permitted. 4. No driving if feeling any sleepiness. Patient is aware of civil and criminal liability for unsafe driving. 5. Patient may continue to take temazepam at bedtime. Thank you very much for allowing me to participate in the management of your patient. Sincerely, Harshal Elaine MD, PhD, FAASM Diplomat of [place] [employer] Sleep Medicine Board of [place] [employer] Chemical Project Engineer of [facility] Anton DAKSHA / KENDRICK: [id number] /
== END ==
LOC: SLEEP 15:37
PROVIDERS: ATTEND Internal Medicine
DX: G47.419 Narcolepsy without cataplexy (principal); J45.909 Unspecified asthma, uncomplicated; Z87.39 Personal history of other diseases of the musculoskeletal system and connective tissue; Z87.09 Personal history of other diseases of the respiratory system; F32.A Depression, unspecified; F41.9 Anxiety disorder, unspecified; Z86.69 Personal history of other diseases of the nervous system and sense organs

== ENCOUNTER → 2021-10-07 | Outpatient (CLI) | payer OTHER ==
--- NOTE | 2021-10-07 13:57 | P.PN ---
Subjective DATE: 10/07/2021 FOLLOW UP VISIT. Patient return to sleep center for follow-up visit for treatment of narcolepsy. Patient was started on treatment with Adderall 5 mg twice a day. At the beginning when she started to use medication she feels better improved, improved alertness during the day. But several days ago patient developed dizziness and she stopped Adderall and dizziness disappearedl. She did not take Adderall after that and continued to have sleepiness during the day. [place] sleepiness scale is 18. MEDICATIONS:1. Temazepam 2. Sumatriptan 3. Propranolol 4. control pills During physical exam: GENERAL: A pleasant patient without any distress. VITAL SIGNS: BP 111/72, HR 85, RR 16 , weight 157, temperature 97.1, oxygen saturation at room air 97 . HEENT: PERRLA, EOMI . NECK: Supple. No JVD. LUNGS: Clear to percussion and to auscultation. Good air exchange. No wheezing or rhonchi. HEART: S1, S2 regular. ABDOMEN: Soft and nontender. EXTREMITIES: No clubbing or cyanosis. HIGHWAY MAINTAINER: Awake, alert, and oriented x3. No focal deficit. Impressions: 1. Narcolepsy type II confirmed by MSLT mean sleep latency 6.4 minutes, 2 sleep onset REM periods were documented. 2. History of fibromyalgia. 3. headaches. 4. Asthma. 5. History of sinusitis. 6. History of Mnire's disease. 7. History of depression. 8. History of anxiety. Plan: 1. Patient will try to use Adderall related decreasing dose to 2.5 mg twice a day 2. Sleep hygiene with regular time in bed for at least 8 hours. 3. Precautions related to driving. No driving if feel any sleepiness. 4. Follow up visit in 1 week or earlier if patient has any problems. 5. Daytime naps admitted. Thank you very much for allowing me to participate in the management of your patient. Harshal Elaine MD, PhD, FAASM. Diplomat of [place] [employer], Sleep Medicine Board by [employer] Interventional Radiology Tech of [facility] [place]
== END ==
LOC: SLEEP 13:18
PROVIDERS: ATTEND Internal Medicine
DX: G47.419 Narcolepsy without cataplexy (principal); J45.909 Unspecified asthma, uncomplicated; F41.9 Anxiety disorder, unspecified; Z87.39 Personal history of other diseases of the musculoskeletal system and connective tissue; Z87.09 Personal history of other diseases of the respiratory system; Z86.69 Personal history of other diseases of the nervous system and sense organs; Z88.0 Allergy status to penicillin; Z88.1 Allergy status to other antibiotic agents; Z88.2 Allergy status to sulfonamides; Z88.8 Allergy status to other drugs, medicaments and biological substances

== ENCOUNTER 2021-12-04 12:20 | Emergency (ER) | payer OTHER ==
[2021-12-04] MEDS ORDERED: ONDANSETRON 4 MG/2 ML VIAL IVP STA (13:05)
[2021-12-04] MEDS ORDERED: FAMOTIDINE 20 MG/2 ML VIAL IV STA (13:06)
[2021-12-04 13:16] LABS: Appearance,Urine Clear (Clear); Bacteria,Urine Rare /hpf; Bilirubin,Urine Negative (Negative); Blood,Urine Moderate (Negative); Color,Urine Yellow; Glucose,Urine (UA) Negative (Negative); Ketones,Urine Negative (Negative); Leukocyte Esterase,Urine Small (Negative); Mucus,Urine Occasional /hpf; Nitrite,Urine Negative (Negative); Protein,Urine Trace (Negative); RBC,Urine 31 /hpf (0-5); Specific Gravity,Urine 1.027 (1.001-1.035); Squamous Epithelial Cell,Urine 1 /hpf (0-4); Urobilinogen,Urine <2.0 mg/dL (<2.0); WBC,Urine 4 /hpf (0-5)
[2021-12-04 13:44] LABS: Basophils % (A) 0 %; Eosinophils # (A) 0.1 k/uL (0-0.7); Eosinophils % (A) 2 %; HGB 13.2 gm/dL (11.4-16.0); Lymphocytes # (A) 1.9 k/uL (1.0-4.8); Lymphocytes % (A) 23 %; MCH 28.4 pg (25.0-35.0); MCHC 32.2 g/dL (31.0-37.0); MCV 88.1 fL (80.0-100.0); Mean Platelet Volume 7.3; Monocytes # (A) 0.3 k/uL (0-1.0); Monocytes % (A) 4 %; Neutrophils # (A) 5.9 k/uL (1.3-7.7); Neutrophils % (A) 70 %; Platelet Count 291 k/uL (150-450); RBC 4.66 m/uL (3.80-5.40); RDW 12.5 % (11.5-15.5); WBC 8.4 k/uL (3.8-10.6)
--- NOTE | 2021-12-04 13:48 | XR ---
EXAMINATION TYPE: XR KUB DATE OF EXAM: 12/04/2021 1:39 PM INDICATION: Patient age:Female; 26 years old; Reason for study: abdominal pain; COMPARISON: None. TECHNIQUE: One radiographic view of the abdomen was obtained. FINDINGS: The bowel gas pattern is nonspecific without dilated loops of small or large bowel. There i s no evidence for organomegaly or pneumoperitoneum. The osseous structures are intact. No abnormal calcifications are present. Fecal material and gas are demonstrated throughout the colon and rectum. IMPRESSION: Nonspecific bowel gas pattern without radiographic evidence for acute process.
[2021-12-04 13:56] LABS: ALT 22 U/L (4-34); AST 29 U/L (14-36); African American GFR (CKD) >90 (>60 ml/min/1.73 sqM); Albumin 3.7 g/dL (3.5-5.0); Alkaline Phosphatase 48 U/L (38-126); Anion Gap 4 mmol/L; Blood Urea Nitrogen 14 mg/dL (7-17); Calcium 8.9 mg/dL (8.4-10.2); Carbon Dioxide 26 mmol/L (22-30); Chloride 106 mmol/L (98-107); Glucose 115 mg/dL (74-99); Non-African American GFR(CKD) >90 (>60 ml/min/1.73 sqM); Sodium 136 mmol/L (137-145); Total Bilirubin 0.4 mg/dL (0.2-1.3); Total Protein 6.7 g/dL (6.3-8.2)
--- NOTE | 2021-12-04 14:06 | ED ---
General Adult HPI - General Chief complaint: Urogenital Stated complaint: possible kidney stone Time Seen by Provider: 12/04/21 12:45 Source: patient, family (mom), RN notes reviewed, old records reviewed Mode of arrival: ambulatory Limitations: no limitations - History of Present Illness Initial comments: 26-year-old female presents to the emergency room ambulatory with her mother complaining of possible kidney stone. Patient states that she developed fever chills and body aches on Monday. She went to urgent care yesterday and was told that she had blood in her urine and was likely a kidney stone. Patient states that the pain is in her lower back. She has nausea, denies any vomiting. She does have IBS and states that she does normally have diarrhea. She does have a history of asthma, fibromyalgia and migraine headaches. She takes jose triptan for her headaches -: days(s) (5) Location: back Severity scale (1-10): 10 Quality: aching Consistency: constant Improves with: none Associated Symptoms: fever/chills, nausea/vomiting, other (hematuria, body aches) Treatments Prior to Arrival: other (urgent care yesterday) - Related Data Home Medications Medication Instructions Recorded Confirmed Albuterol Inhaler [Ventolin Hfa 1 - 2 puff INHALATION RT-QID PRN 09/04/18 09/04/18 Inhaler] Setlakin 0.15/0.03 1 tab PO DAILY 09/04/18 09/04/18 Allergies Allergy/AdvReac Type Severity Reaction Status Date / Time clindamycin Allergy Dyspnea Verified 12/04/21 12:46 Penicillins Allergy Dyspnea Verified 12/04/21 12:46 sulfamethoxazole Allergy Dyspnea Verified 12/04/21 12:46 [From Bactrim] trimethoprim [From Bactrim] Allergy Dyspnea Verified 12/04/21 12:46 prednisone AdvReac Confusion Verified 12/04/21 12:46 Review of Systems ROS Statement: Those systems with pertinent positive or pertinent negative responses have been documented in the HPI. ROS Other: All systems not noted in ROS Statement are negative. Past Medical History Past Medical History: Asthma Additional Past Medical History / Comment(s): fibromyaliga. Menners. spinal issue. narcolepsy. Arthritis History of Any Multi-Drug Resistant Organisms: None Reported Past Surgical History: No Surgical Hx Reported Past Anesthesia/Blood Transfusion Reactions: Unable to Obtain Additional Past Anesthesia/Blood Transfusion Reaction / Comment(s): Pt has never had surgery or blood transfusion Past Psychological History: Anxiety, Depression Smoking Status: Never smoker Past Alcohol Use History: Rare Past Drug Use History: Marijuana - Past Family History Mother Family Medical History: Asthma, Fibromyalgia General Exam Limitations: no limitations General appearance: alert, in no apparent distress Head exam: Present: atraumatic, normocephalic Eye exam: Absent: scleral icterus, conjunctival injection, periorbital swelling, periorbital tenderness ENT exam: Present: normal oropharynx, mucous membranes moist Neck exam: Present: normal inspection, full ROM. Absent: tenderness, meningismus Respiratory exam: Present: normal lung sounds bilaterally. Absent: respiratory distress, accessory muscle use Cardiovascular Exam: Present: regular rate GI/Abdominal exam: Present: soft. Absent: distended, tenderness, guarding, rebound, rigid Extremities exam: Present: normal inspection, full ROM, normal capillary refill. Absent: tenderness, pedal edema Back exam: Present: normal inspection, full ROM. Absent: tenderness, CVA tenderness (R), CVA tenderness (L), rash noted Neurological exam: Present: alert, oriented X3, normal gait Psychiatric exam: Present: normal affect, normal mood Skin exam: Present: warm, dry, intact, normal color. Absent: cyanosis, diaphoretic, petechiae, pallor Course Vital Signs 12/04/21 12/04/21 12/04/21 12:42 14:10 15:25 Temperature 98.6 F Pulse Rate 91 90 79 Respiratory 20 18 16 Rate Blood Pressure 143/101 112/73 107/64 O2 Sat by Pulse 99 100 99 Oximetry - Reevaluation(s) Reevaluation #1: 12/04/21 14:40 Patient states that she continues to have bilateral lower abdominal pain. On pa lpation patient is minimally tender. Abdomen is soft. I did discuss with her her lab results. She was offered a CT scan and she states would feel better if she had one today. Time: 14:40 Medical Decision Making - Medical Decision Making Patient presents with body aches, low back pain and lower abdominal pain since Monday. She denies any dysuria or vaginal bleeding. She was found to have hematuria at urgent care yesterday. Labs today show no evidence of leukocytosis, hemoglobin and hematocrit are stable. Electrolytes are unremarkable. UA does show some blood but no evidence of infection. Urine was sent for culture. Influenza and coronavirus swabs are negative. XR shows nonspecific bowel gas pattern with no evidence of acute process. There are no abnormal calcifications present. After discussing the results with the patient she remains concerned therefore with shared decision making between her and her mother they decided they would like a CT scan of her abdomen. CT shows no abnormalities. Kidneys normal no hydronephrosis or calcifications. Bladder distends smoothly. No free fluid in pelvis or masses. No bowel obstruction. No sign of thickened appendix. At this time I do not have a source for the patient's pain. Patient will be discharged to follow up with her primary care doctor. Vital signs are stable. Case was discussed with Dr. Hammer. - Lab Data Result diagrams: 12/04/21 13:20 12/04/21 13:20 Lab Results 12/04/21 12/04/21 12/04/21 Range/Units 12:57 12:57 13:20 WBC 8.4 (3.8-10.6) k/uL RBC 4.66 (3.80-5.40) m/uL Hgb 13.2 (11.4-16.0) gm/dL Hct 41.0 (34.0-46.0) % MCV 88.1 (80.0-100.0) fL MCH 28.4 (25.0-35.0) pg MCHC 32.2 (31.0-37.0) g/dL RDW 12.5 (11.5-15.5) % Plt Count 291 (150-450) k/uL MPV 7.3 Neutrophils % 70 % Lymphocytes % 23 % Monocytes % 4 % Eosinophils % 2 % Basophils % 0 % Neutrophils # 5.9 (1.3-7.7) k/uL Lymphocytes # 1.9 (1.0-4.8) k/uL Monocytes # 0.3 (0-1.0) k/uL Eosinophils # 0.1 (0-0.7) k/uL Basophils # 0.0 (0-0.2) k/uL Sodium (137-145) mmol/L Potassium (3.5-5.1) mmol/L Chloride (98-107) mmol/L Carbon Dioxide (22-30) mmol/L Anion Gap mmol/L BUN (7-17) mg/dL Creatinine (0.52-1.04) mg/dL Est GFR (CKD-EPI)AfAm (>60 ml/min/1.73 sqM) Est GFR (CKD-EPI)NonAf (>60 ml/min/1.73 sqM) Glucose (74-99) mg/dL Calcium (8.4-10.2) mg/dL Total Bilirubin (0.2-1.3) mg/dL AST (14-36) U/L ALT (4-34) U/L Alkaline Phosphatase (38-126) U/L Total Protein (6.3-8.2) g/dL Albumin (3.5-5.0) g/dL Urine Color Yellow Urine Appearance Clear (Clear) Urine pH 6.0 (5.0-8.0) Ur Specific [place] 1.027 (1.001-1.035) Urine Protein Trace H (Negative) Urine Glucose (UA) Negative (Negative) Urine Ketones Negative (Negative) Urine Blood Moderate H (Negative) Urine Nitrite Negative (Negative) Urine Bilirubin Negative (Negative) Urine Urobilinogen <2.0 (<2.0) mg/dL Ur Leukocyte Esterase Small H (Negative) Urine RBC 31 H (0-5) /hpf Urine WBC 4 (0-5) /hpf Ur Squamous Epith Cells 1 (0-4) /hpf Urine Bacteria Rare H (None) /hpf Urine Mucus Occasional H (None) /hpf Urine HCG, Qual Not Detected (Not Detectd) Coronavirus (PCR) (Not Detectd) Influenza Type A RNA (Not Detectd) Influenza Type B (PCR) (Not Detectd) 12/04/21 12/04/21 12/04/21 Range/Units 13:20 13:20 13:20 WBC (3.8-10.6) k/uL RBC (3.80-5.40) m/uL Hgb (11.4-16.0) gm/dL Hct (34.0-46.0) % MCV (80.0-100.0) fL MCH (25.0-35.0) pg MCHC (31.0-37.0) g/dL RDW (11.5-15.5) % Plt Count (150-450) k/uL MPV Neutrophils % % Lymphocytes % % Monocytes % % Eosinophils % % Basophils % % Neutrophils # (1.3-7.7) k/uL Lymphocytes # (1.0-4.8) k/uL Monocytes # (0-1.0) k/uL Eosinophils # (0-0.7) k/uL Basophils # (0-0.2) k/uL Sodium 136 L (137-145) mmol/L Potassium 4.0 (3.5-5.1) mmol/L Chloride 106 (98-107) mmol/L Carbon Dioxide 26 (22-30) mmol/L Anion Gap 4 mmol/L BUN 14 (7-17) mg/dL Creatinine 0.69 (0.52-1.04) mg/dL Est GFR (CKD-EPI)AfAm >90 (>60 ml/min/1.73 sqM) Est GFR (CKD-EPI)NonAf >90 (>60 ml/min/1.73 sqM) Glucose 115 H (74-99) mg/dL Calcium 8.9 (8.4-10.2) mg/dL Total Bilirubin 0.4 (0.2-1.3) mg/dL AST 29 (14-36) U/L ALT 22 (4-34) U/L Alkaline Phosphatase 48 (38-126) U/L Total Protein 6.7 (6.3-8.2) g/dL Albumin 3.7 (3.5-5.0) g/dL Urine Color Urine Appearance (Clear) Urine pH (5.0-8.0) Ur Specific [place] (1.001-1.035) Urine Protein (Negative) Urine Glucose (UA) (Negative) Urine Ketones (Negative) Urine Blood (Negative) Urine Nitrite (Negative) Urine Bilirubin (Negative) Urine Urobilinogen (<2.0) mg/dL Ur Leukocyte Esterase (Negative) Urine RBC (0-5) /hpf Urine WBC (0-5) /hpf Ur Squamous Epith Cells (0-4) /hpf Urine Bacteria (None) /hpf Urine Mucus (None) /hpf Urine HCG, Qual (Not Detectd) Coronavirus (PCR) Not Detected (Not Detectd) Influenza Type A RNA Not Detected (Not Detectd) Influenza Type B (PCR) Not Detected (Not Detectd) Disposition Clinical Impression: Abdominal pain, Back pain, Hematuria Disposition: HOME SELF-CARE Condition: Good Instructions (If sedation given, give patient instructions): Hematuria (ED), Abdominal Pain (ED), Back Pain (ED) Additional Instructions: At this time I do not have a reason for your pain. Your lab work , x-ray and CT scan do not show any area of concern. I do not have a reason for your hematuria. I do recommend you follow up with your primary care doctor next week. Return to the emergency room with any new or concerning symptoms. Is patient prescribed a controlled substance at d/c from ED?: No Referrals: Carolin Luke MD [Primary Care Provider] - 1-2 days Time of Disposition: 16:25
[2021-12-04 15:26] VITALS: RESP 16
--- NOTE | 2021-12-04 16:04 | CT ---
EXAMINATION TYPE: CT abdomen pelvis w con DATE OF EXAM: 12/04/2021 COMPARISON: 09/04/2018 HISTORY: Lower abdominal pain CT DLP: 775.7 mGycm Automated exposure control for dose reduction was used. CONTRAST: Performed with IV Contrast, patient injected with 100 mL of Isovue 300. The lung bases are clear of infiltrate. No pleural effusion. There is minimal subsegmental atelectasi s at the right lung base. No pericardial effusion. Heart size is normal. Liver spleen and stomach pancreas and gallbladder appear normal. The bile ducts are nondilated. There is no adrenal mass. Kidneys have normal size and contour. There is normal contrast opacificatio n of the kidneys. No hydronephrosis. Delayed images show normal renal excretion. Ureters are not dila nils. There is no retroperitoneal adenopathy. Bladder distends smoothly. No inguinal hernia. No free f luid in the pelvis. Uterus is anteverted. No pelvic mass. There is no mesenteric edema. No ascites or free air. No sign of a bowel obstruction. Appendix not se en. No sign of thickened appendix. The lumbar vertebra have normal spacing and alignment. Posterior elements are intact. No compression fracture. Bony pelvis is intact. The hip joints are intact. IMPRESSION: Negative CT scan abdomen and pelvis. No adverse change compared to old exam.
[2021-12-04 16:40] VITALS: BP 110/73; PULSE 83; TEMP 98.7
== END 2021-12-04 16:40 | disposition home or self-care (01) ==
LOC: EC 12:20
DX: R10.31 Right lower quadrant pain (principal); R10.32 Left lower quadrant pain; R31.9 Hematuria, unspecified; M54.9 Dorsalgia, unspecified; J45.909 Unspecified asthma, uncomplicated; Z20.822 Contact with and (suspected) exposure to COVID-19; Z88.1 Allergy status to other antibiotic agents; Z88.0 Allergy status to penicillin; Z88.2 Allergy status to sulfonamides; Z88.8 Allergy status to other drugs, medicaments and biological substances
CPT/HCPCS: 36415; 80053; 85025; 81001; 81025; 87502; 87635; 74018; 74177; 99284; 96374; 96375; J2405; Q9967

== ENCOUNTER 2022-10-25 18:49 | Emergency (ER) | payer OTHER ==
[2022-10-25 20:22] VITALS: RESP 16
[2022-10-25] MEDS ORDERED: PROPARACAINE 0.5% OPHTH DROPS 15 ML BTL LEFT EYE STA (21:04)
[2022-10-25] MEDS ORDERED: FLUORESCEIN STRIPS 1 MG STRIP LEFT EYE ONE (21:04)
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
[2022-10-25] MEDS ORDERED: ALBUTEROL NEBULIZED 2.5 MG/3 ML INHALATION STA (21:49)
[2022-10-25 22:16] VITALS: BP 116/79; PULSE 85; TEMP 97.6
== END 2022-10-25 22:17 | disposition home or self-care (01) ==
LOC: EC 18:49
DX: T15.91XA Foreign body on external eye, part unspecified, right eye, initial encounter (principal); J45.909 Unspecified asthma, uncomplicated; F41.9 Anxiety disorder, unspecified; F32.A Depression, unspecified; F12.90 Cannabis use, unspecified, uncomplicated; Z79.899 Other long term (current) drug therapy; Z88.0 Allergy status to penicillin; Z88.2 Allergy status to sulfonamides; Z88.6 Allergy status to analgesic agent; Z88.8 Allergy status to other drugs, medicaments and biological substances; Z88.1 Allergy status to other antibiotic agents; W22.01XA Walked into wall, initial encounter
CPT/HCPCS: 94640; 99283

== ENCOUNTER → 2022-10-26 | Outpatient (CLI) | payer OTHER ==
--- NOTE | 2022-10-26 13:17 | P.PN ---
Subjective DATE: 10/18/2022 FOLLOW UP VISIT. Patient returned to sleep center for follow-up visit related to treatment of significant excessive daytime sleepiness secondary to narcolepsy. Patient is on treatment with Adderall. During last visit patient was recommended to decrease dose of Adderall to 2.5 mg twice a day. With this regimen no side effects. Patient alertness mostly on control . [place] sleepiness scale is 9, which is borderline. MEDICATIONS:1. Adderall 2.5 mg twice a day 2. Propranolol 3. control pills 4. Famotidine 20 mg twice a day 5. Temazepam 6. Sumatriptan During physical exam: GENERAL: A pleasant patient without any distress. VITAL SIGNS: BP 110/68, HR 87, RR 12 , weight 148.2, temperature 97.3, oxygen saturation at room air 100 . HEENT: PERRLA, EOMI. NECK: Supple. No JVD. LUNGS: Clear to percussion and to auscultation. Good air exchange. No wheezing or rhonchi. HEART: S1, S2 regular. ABDOMEN: Soft and nontender. EXTREMITIES: No clubbing or cyanosis. DEPUTY CHIEF EXECUTIVE: Awake, alert, and oriented x3. No focal deficit. Impressions: 1. Narcolepsy type II, confirmed by M LIZT. Mean sleep latency 6.4 minutes and to sleep onset REM periods have been documented 2. History of headaches. 3. History of fibromyalgia. 4. Asthma. 5. History of sinusitis. 6. History of depression. 7. History of anxiety. 8. History of Mnire disease. Plan: 1. Patient will continue treatment with Adderall 2.5 mg twice a day 2. Sleep hygiene with regular time in bed for at least 8 hours. 3. Daytime naps permitted 4. Precautions related to driving. No driving if feel any sleepiness. Patient is aware about civil and criminal liability for unsafe driving, promised to follow recommendations. 5. Follow up visit in 4-6 months or earlier if patient has any problems. Thank you very much for allowing me to participate in the management of your patient. Harshal Elaine MD, PhD, FAASM. Diplomat of [place] [employer], Sleep Medicine Board by [place] [id number] Interface Developer of [facility] [place]
== END ==
LOC: 3 N SLEEP 11:07
PROVIDERS: ATTEND Internal Medicine
DX: G47.419 Narcolepsy without cataplexy (principal); J45.909 Unspecified asthma, uncomplicated; F41.9 Anxiety disorder, unspecified; M79.7 Fibromyalgia; F32.A Depression, unspecified; Z86.69 Personal history of other diseases of the nervous system and sense organs; Z79.51 Long term (current) use of inhaled steroids; Z88.0 Allergy status to penicillin; Z88.2 Allergy status to sulfonamides; Z88.1 Allergy status to other antibiotic agents; Z88.8 Allergy status to other drugs, medicaments and biological substances; Z79.3 Long term (current) use of hormonal contraceptives
CPT/HCPCS: 99212

== ENCOUNTER 2022-12-10 17:25 | Emergency (ER) | payer OTHER ==
[2022-12-10 17:41] VITALS: RESP 18; TEMP 98.6
[2022-12-10] MEDS ORDERED: SODIUM CHLORIDE 0.9% 500 ML 500 ML IV STA (19:06)
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
[2022-12-10 19:18] LABS: Basophils # (A) 0.1 k/uL (0-0.2); Basophils % (A) 0 %; Eosinophils % (A) 0 %; HCT 41.8 % (34.0-46.0); HGB 13.8 gm/dL (11.4-16.0); Lymphocytes # (A) 1.9 k/uL (1.0-4.8); Lymphocytes % (A) 15 %; MCH 29.1 pg (25.0-35.0); MCHC 33.1 g/dL (31.0-37.0); Mean Platelet Volume 7.9; Monocytes # (A) 0.5 k/uL (0-1.0); Monocytes % (A) 4 %; Neutrophils # (A) 10.1 k/uL (1.3-7.7); Neutrophils % (A) 79 %; Platelet Count 280 k/uL (150-450); RBC 4.75 m/uL (3.80-5.40); RDW 12.5 % (11.5-15.5); WBC 12.8 k/uL (3.8-10.6)
[2022-12-10 19:30] LABS: ALT 43 U/L (4-34); AST 32 U/L (14-36); African American GFR (CKD) >90 (>60 ml/min/1.73 sqM); Albumin 4.3 g/dL (3.5-5.0); Alkaline Phosphatase 50 U/L (38-126); Anion Gap 9 mmol/L; Blood Urea Nitrogen 12 mg/dL (7-17); Calcium 9.6 mg/dL (8.4-10.2); Carbon Dioxide 26 mmol/L (22-30); Chloride 105 mmol/L (98-107); Glucose 102 mg/dL (74-99); Non-African American GFR(CKD) >90 (>60 ml/min/1.73 sqM); Potassium 4.4 mmol/L (3.5-5.1); Sodium 140 mmol/L (137-145); Total Bilirubin 0.4 mg/dL (0.2-1.3); Total Protein 7.7 g/dL (6.3-8.2)
--- NOTE | 2022-12-10 19:43 | XR ---
EXAMINATION TYPE: XR chest 2V DATE OF EXAM: 12/10/2022 COMPARISON: None HISTORY: 27 year-old female shortness of breath, difficulty breathing TECHNIQUE: PA and lateral views FINDINGS: The cardiomediastinal silhouette, aorta, and pulmonary vasculature are within normal limits. Lungs an d pleural spaces are clear. IMPRESSION: No acute cardiopulmonary process.
[2022-12-10 20:39] VITALS: BP 119/75; PULSE 80
== END 2022-12-10 20:39 | disposition home or self-care (01) ==
LOC: EC 17:25
DX: J40 Bronchitis, not specified as acute or chronic (principal); R07.81 Pleurodynia; F12.90 Cannabis use, unspecified, uncomplicated; Z86.59 Personal history of other mental and behavioral disorders; Z20.822 Contact with and (suspected) exposure to COVID-19; Z88.0 Allergy status to penicillin; Z88.2 Allergy status to sulfonamides; Z88.8 Allergy status to other drugs, medicaments and biological substances
CPT/HCPCS: 36415; 71046; 80053; 84484; 85025; 85379; 87636; 93005; 96360; 99285

== ENCOUNTER 2023-03-03 20:57 | Emergency (ER) | payer OTHER ==
[2023-03-03 21:47] VITALS: TEMP 98.3
[2023-03-03 22:09] LABS: Appearance,Urine Clear (Clear); Bacteria,Urine Rare /hpf; Bilirubin,Urine Negative (Negative); Blood,Urine Small (Negative); Color,Urine Colorless; Glucose,Urine (UA) Negative (Negative); Ketones,Urine Negative (Negative); Leukocyte Esterase,Urine Negative (Negative); Nitrite,Urine Negative (Negative); Protein,Urine Negative (Negative); RBC,Urine 1 /hpf (0-5); Specific Gravity,Urine 1.004 (1.001-1.035); Squamous Epithelial Cell,Urine <1 /hpf (0-4); Urobilinogen,Urine <2.0 mg/dL (<2.0); WBC,Urine <1 /hpf (0-5)
--- NOTE | 2023-03-03 23:39 | ED ---
Back Pain HPI - General Chief Complaint: Back Pain/Injury Stated Complaint: UTI Time Seen by Provider: 03/03/23 23:02 Source: patient Limitations: no limitations - History of Present Illness Initial Comments: 27-year-old female presented to the ED with a chief complaint of flank pain. Patient states that she was seen at urgent care earlier this week due to dysuria and was found to have urinary tract infection. This then, reports has been taking antibiotics as prescribed. Reports improvement of dysuria however today onset of right flank pain. Denies fever or chills. No chest facial distress. No other complaints. - Related Data Home Medications Medication Instructions Recorded Confirmed Albuterol Inhaler [Ventolin Hfa 1 - 2 puff INHALATION RT-QID PRN 09/04/18 09/04/18 Inhaler] Setlakin 0.15/0.03 1 tab PO DAILY 09/04/18 09/04/18 Previous Rx's Medication Instructions Recorded Dextroamphetamine/Amphetamine 5 mg PO DAILY 30 Days #30 tablet 12/14/22 [Adderall] Allergies Allergy/AdvReac Type Severity Reaction Status Date / Time clindamycin Allergy Dyspnea Verified 03/03/23 21:34 Penicillins Allergy Dyspnea Verified 03/03/23 21:34 sulfamethoxazole Allergy Dyspnea Verified 03/03/23 21:34 [From Bactrim] trimethoprim [From Bactrim] Allergy Dyspnea Verified 03/03/23 21:34 prednisone AdvReac Confusion Verified 03/03/23 21:34 Review of Systems ROS Statement: Those systems with pertinent positive or pertinent negative responses have been documented in the HPI. ROS Other: All systems not noted in ROS Statement are negative. Past Medical History Past Medical History: Asthma Additional Past Medical History / Comment(s): fibromyaliga. Menners. spinal issue. narcolepsy. Arthritis History of Any Multi-Drug Resistant Organisms: None Reported Past Surgical History: No Surgical Hx Reported Additional Past Surgical History / Comment(s): dental surgery Past Anesthesia/Blood Transfusion Reactions: Unable to Obtain Additional Past Anesthesia/Blood Transfusion Reaction / Comment(s): Pt has never had surgery or blood transfusion Past Psychological History: Anxiety, Depression Smoking Status: Never smoker Past Alcohol Use History: Rare Past Drug Use History: Marijuana - Past Family History Mother Family Medical History: Asthma, Fibromyalgia General Exam Limitations: no limitations General appearance: alert, in no apparent distress Eye exam: Present: normal appearance ENT exam: Present: normal exam Respiratory exam: Present: normal lung sounds bilaterally Cardiovascular Exam: Present: regular rate, normal rhythm GI/Abdominal exam: Present: soft (No Abdominal tenderness to palpation. Right CVA tenderness to percussion.), normal bowel sounds Neurological exam: Present: alert, oriented X3 Skin exam: Present: warm, dry Course Vital Signs 03/03/23 21:34 Temperature 98.3 F Pulse Rate 86 Respiratory 18 Rate Blood Pressure 134/94 O2 Sat by Pulse 98 Oximetry Medical Decision Making - Medical Decision Making Was pt. sent in by a medical professional or institution (, PA, EDITOR & CO FOUNDER, urgent care, hospital, or [facility]...) When possible be specific @ -No Did you speak to anyone other than the patient for history (EMS, parent, family, police, friend...)? What history was obtained from this source @ -No Did you review nursing and triage notes (agree or disagree)? Why? @ -I reviewed and agree with nursing and triage notes Were old charts reviewed (outside hosp., previous admission, EMS record, old EKG, old radiological studies, urgent care reports/EKG's, [facility] records)? Report findings @ -No old charts were reviewed Differential Diagnosis (chest pain, altered mental status, abdominal pain women, abdominal pain men, vaginal bleeding, weakness, fever, dyspnea, syncope, head ache, dizziness, GI bleed, back pain, seizure, CVA, palpatations, mental health, musculoskeletal)? @ -Differential Abdominal Pain Women: Appendicitis, Cholecystitis, diverticulosis, ischemic bowel, pancreatitis, hepatitis, UTI, gastroenteritis, AAA, incarcerated hernia, bowel obstruction, constipation, inflammatory bowel, hepatitis, peptic ulcer disease, splenic infarction, perforated viscus, vulvitis, ovarian torsion, PID, kidney stone, placenta abruption, this is not meant to be an all-inclusive list EKG interpreted by me (3pts min.). @ -None X-rays interpreted by me (1pt min.). @ -None done CT interpreted by me (1pt min.). @ -None done U/S interpreted by me (1pt. min.). @ -None done What testing was considered but not performed or refused? (CT, X-rays, U/S, labs)? Why? @ -None What meds were considered but not given or refused? Why? @ -None Did you discuss the management of the patient with other professionals (hiro simpson i.e. , PA, EDITOR & CO FOUNDER, lab, RT, psych nurse, social science research assistant, platen press operator apprentice, teacher, youth officer, manager rn case)? Give summary @ -No Was smoking cessation discussed for >3mins.? @ -No Was critical care preformed (if so, how long)? @ -No Were there social determinants of health that impacted care today? How? (Homelessness, low income, unemployed, alcoholism, drug addiction, transportation, low edu. Level, literacy, decrease access to med. care, longterm, rehab)? @ -No Was there de-escalation of care discussed even if they declined (Discuss DNR or withdrawal of care, Hospice)? DNR status @ -No What co-morbidities impacted this encounter? (DM, HTN, Smoking, COPD, CAD, Cancer, CVA, ARF, Chemo, Hep., AIDS, mental health diagnosis, sleep apnea, morbid obesity)? @ -None Was patient admitted / discharged? Hospital course, mention meds given and route, prescriptions, significant lab abnormalities, going to OR and other pertinent info. @ -Discharge A 27-year-old female currently being treated for UTI presenting to the ED with concerns of right flank pain. UA here shows no evidence of infection. Symptoms likely muscular skeletal nature. Discharged home in stable condition. Advised supportive care. Discussed return precautions with patient who verbalizes agreement. Undiagnosed new problem with uncertain prognosis? @ -No Drug Therapy requiring intensive monitoring for toxicity (Heparin, Nitro, Insulin, Cardizem)? @ -No Were any procedures done? @ -No Diagnosis/symptom? @ -Back pain Acute, or Chronic, or Acute on Chronic? @ -Acute Uncomplicated (without systemic symptoms) or Complicated (systemic symptoms)? @ -Uncomplicated Side effects of treatment? @ -No Exacerbation, Progression, or Severe Exacerbation? @ -No Poses a threat to life or bodily function? How? (Chest pain, [place], [place], pneumonia, PE, COPD, DKA, ARF, appy, cholecystitis, CVA, Diverticulitis, Homicidal, Suicidal, threat to staff... and all critical care pts) @ -No - Lab Data Lab Results 03/03/23 Range/Units 21:45 Urine Color Colorless Urine Appearance Clear (Clear) Urine pH 6.0 (5.0-8.0) Ur Specific Theodore 1.004 (1.001-1.035) Urine Protein Negative (Negative) Urine Glucose (UA) Negative (Negative) Urine Ketones Negative (Negative) Urine Blood Small H (Negative) Urine Nitrite Negative (Negative) Urine Bilirubin Negative (Negative) Urine Urobilinogen <2.0 (<2.0) mg/dL Ur Leukocyte Esterase Negative (Negative) Urine RBC 1 (0-5) /hpf Urine WBC <1 (0-5) /hpf Ur Squamous Epith Cells <1 (0-4) /hpf Urine Bacteria Rare H (None) /hpf Disposition Clinical Impression: Back pain Disposition: HOME SELF-CARE Condition: Good Additional Instructions: Please return to the Emergency Department if symptoms worsen or any other concerns. Is patient prescribed a controlled substance at d/c from ED?: No Referrals: Carolin Luke MD [Primary Care Provider] - 1-2 days Time of Disposition: 23:41
[2023-03-03 23:55] VITALS: BP 124/81; PULSE 64; RESP 16
== END 2023-03-03 23:46 | disposition home or self-care (01) ==
LOC: EC 20:57
DX: M54.9 Dorsalgia, unspecified (principal); J45.909 Unspecified asthma, uncomplicated; F12.90 Cannabis use, unspecified, uncomplicated; Z86.59 Personal history of other mental and behavioral disorders; Z88.0 Allergy status to penicillin; Z88.2 Allergy status to sulfonamides; Z88.8 Allergy status to other drugs, medicaments and biological substances
CPT/HCPCS: 81001; 99284

== ENCOUNTER 2023-08-27 13:00 | Emergency (ER) | payer OTHER ==
--- NOTE | 2023-08-27 14:21 | ED ---
Extremity Problem HPI - General Chief complaint: Extremity Injury, Upper Stated complaint: R Arm Swelling Time Seen by Provider: 08/27/23 13:22 Source: patient, RN notes reviewed Mode of arrival: ambulatory Limitations: no limitations - History of Present Illness Initial comments: This is a 28-year-old female who presents to the emergency department for right arm pain and swelling. 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 States that the swelling seemed to increase this morning. She has discomfort associated with this but denies severe pain. States that she also feels a strange sensation in her right ear and also feels like her equilibrium is off, however she is not dizzy. MD Complaint: extremity pain, extremity swelling - Related Data Home Medications Medication Instructions Recorded Confirmed Albuterol Inhaler [Ventolin Hfa 1 - 2 puff INHALATION RT-QID PRN 09/04/18 09/04/18 Inhaler] Setlakin 0.15/0.03 1 tab PO DAILY 09/04/18 09/04/18 Previous Rx's Medication Instructions Recorded Dextroamphetamine/Amphetamine 5 mg PO DAILY 30 Days #30 tablet 12/14/22 [Adderall] Allergies Allergy/AdvReac Type Severity Reaction Status Date / Time clindamycin Allergy Dyspnea Verified 08/27/23 13:16 Penicillins Allergy Dyspnea Verified 08/27/23 13:16 sulfamethoxazole Allergy Dyspnea Verified 08/27/23 13:16 [From Bactrim] trimethoprim [From Bactrim] Allergy Dyspnea Verified 08/27/23 13:16 prednisone AdvReac Confusion Verified 08/27/23 13:16 Review of Systems ROS Statement: Those systems with pertinent positive or pertinent negative responses have been documented in the HPI. ROS Other: All systems not noted in ROS Statement are negative. Past Medical History Past Medical History: Asthma Additional Past Medical History / Comment(s): fibromyaliga. Menners. spinal issue. narcolepsy. Arthritis History of Any Multi-Drug Resistant Organisms: None Reported Past Surgical History: No Surgical Hx Reported Additional Past Surgical History / Comment(s): dental surgery Past Anesthesia/Blood Transfusion Reactions: Unable to Obtain Additional Past Anesthesia/Blood Transfusion Reaction / Comment(s): Pt has never had surgery or blood transfusion Past Psychological History: Anxiety, Depression Smoking Status: Never smoker Past Alcohol Use History: Rare Past Drug Use History: Marijuana - Past Family History Mother Family Medical History: Asthma, Fibromyalgia General Exam Limitations: no limitations General appearance: alert, in no apparent distress Head exam: Present: atraumatic, normocephalic, normal inspection ENT exam: Present: TM's normal bilaterally, normal external ear exam Respiratory exam: Present: normal lung sounds bilaterally. Absent: respiratory distress, wheezes, rales, rhonchi, stridor Cardiovascular Exam: Present: regular rate, normal rhythm, normal heart sounds. Absent: systolic murmur, diastolic murmur, rubs, gallop, clicks Extremities exam: Present: other (There is possibly mild generalized swelling to the right arm. No tenderness, erythema, or warmth. 2+ radial pulses.) Neurological exam: Present: alert, oriented X3, CN II-XII intact Psychiatric exam: Present: normal affect, normal mood Skin exam: Present: warm, dry, intact, normal color. Absent: rash Course Vital Signs 08/27/23 08/27/23 13:13 15:41 Temperature 98.1 F 98.3 F Pulse Rate 116 H 100 Respiratory 18 18 Rate Blood Pressure 120/81 111/71 O2 Sat by Pulse 100 99 Oximetry Medical Decision Making - Medical Decision Making This is a 28-year-old female who presents to the emergency department for arm pain. Was pt. sent in by a medical professional or institution? @ -No Did you speak to anyone other than the patient for history? @ -No Did you review nursing and triage notes? @ -Yes, and I agree, it is accurate with regards to the patient's symptoms. Were old charts reviewed? @ -No Differential Diagnosis? @ -Differential Musculoskeletal: Muscular strain, contusion, ligament sprain, fracture, arthritis, septic arthritis, bursitis, cellulitis, muscle spasm, nerve compression, DVT, arterial occlusion, herpes zoster, electrolyte abnormality, tumor.... This is not meant to be in all inclusive list EKG interpreted by me (3pts min.)? @ -Not obtained X-rays interpreted by me (1pt min.)? @ -Not obtained CT interpreted by me (1pt min.)? @ -Not obtained U/S interpreted by me (1pt. min.)? @ -Duplex ultrasound of the right upper extremity obtained. My interpretation identifies no evidence of a DVT. What testing was considered but not performed? (CT, X-rays, U/S, labs)? Why? @ -None What meds were considered but not given? Why? @ -None Did you discuss the management of the patient with other professionals? @ -No Did you reconcile home meds? @ -No Was smoking cessation discussed for >3mins.? @ -No Was critical care preformed (if so, how long)? @ -No Were there social determinants of health that impacted care today? How? (Homelessness, low income, unemployed, alcoholism, drug addiction, transportation, low edu. Level, literacy, decrease access to med. care, senior care, rehab)? @ -No Was there de-escalation of care discussed even if they declined? (Discuss DNR or withdrawal of care, Hospice)? @ -No What co-morbidities impacted this encounter? (DM, HTN, Smoking, COPD, CAD, Cancer, CVA, Hep., AIDS, mental health diagnosis, sleep apnea, morbid obesity)? @ -None Was patient admitted / discharged? @ -Discharged. Physical examination demonstrates potential mild swelling of the right upper extremity. However there were no overlying skin changes or findings to suggest compartment syndrome. She was neurovascularly intact. Physical examination of the ears also demonstrated no acute process. Advised that no workup is necessary, however I did offer an ultrasound of the arm. Patient requested to proceed. Ultrasound of the right upper extremity demonstrates no evidence of a DVT or other acute process. Advised ibuprofen and Tylenol as needed for pain relief. Patient discharged home in stable condition. Undiagnosed new problem with uncertain prognosis? @ -None Drug Therapy requiring intensive monitoring for toxicity (Heparin, Nitro, Insulin, Cardizem)? @ -None Were any procedures done? @ -None Diagnosis/symptom? @ -Right arm pain Acute, or Chronic, or Acute on Chronic? @ -Acute Uncomplicated (without systemic symptoms) or Complicated (systemic symptoms)? @ -Uncomplicated Side effects of treatment? @ -None Exacerbation, Progression, or Severe Exacerbation] @ -Not applicable Poses a threat to life or bodily function? @ -No Return precautions reviewed in depth, the patient is instructed to return to the emergency department with any new, worsening, or concerning symptoms. Patient verbalized understanding. This case was discussed in detail with the attending ED physician, Dr. Jaramillo. Presentation, findings, and treatment plan discussed in detail as well. - Radiology Data Radiology results: report reviewed, image reviewed Disposition Clinical Impression: Pain and swelling of right upper extremity Disposition: HOME SELF-CARE Additional Instructions: Return to the emergency department with any new, worsening, or concerning symptoms. Alternate with ibuprofen and Tylenol as needed for pain relief. The ibuprofen will also help with swelling. Follow up with your primary care provider in 1-2 days. Is patient prescribed a controlled substance at d/c from ED?: No Referrals: Carolin Luke MD [Primary Care Provider] - 1-2 days Time of Disposition: 15:32
[2023-08-27 14:34] VITALS: RESP 18
--- NOTE | 2023-08-27 15:10 | US ---
EXAMINATION TYPE: US venous doppler duplex UE RT DATE OF EXAM: 08/27/2023 COMPARISON: NONE CLINICAL INDICATION: Female, 28 years old with history of Pain and swelling; Pain and edema right arm today. patient was shocked by a weight reduction specialist last night SIDE PERFORMED: right Right Arm: no evidence of DVT IMPRESSION: Grayscale, color doppler, spectral doppler imaging performed of the deep veins of the upper extremiti es. There is normal flow, compressibility and vascular waveforms.
[2023-08-27 15:58] VITALS: BP 111/71; PULSE 100; TEMP 98.3
== END 2023-08-27 15:42 | disposition home or self-care (01) ==
LOC: EC 13:00
DX: M79.621 Pain in right upper arm (principal); Z88.0 Allergy status to penicillin; Z88.2 Allergy status to sulfonamides; Z88.8 Allergy status to other drugs, medicaments and biological substances
CPT/HCPCS: 99283

== ENCOUNTER 2023-10-09 16:14 | Emergency (ER) | payer OTHER ==
[2023-10-09] MEDS ORDERED: PANTOPRAZOLE 40 MG/10 ML VIAL IVP STA (17:26)
[2023-10-09] MEDS ORDERED: SODIUM CHLORIDE 0.9% 1,000 ML IV STA (17:26)
[2023-10-09] MEDS ORDERED: ONDANSETRON 4 MG/2 ML VIAL IVP STA (17:26)
[2023-10-09] MEDS ORDERED: KETOROLAC 15 MG/ML 1 ML VIAL IVP STA (17:26)
[2023-10-09 19:32] LABS: Basophils # (A) 0.1 k/uL (0-0.2); Basophils % (A) 1 %; Eosinophils # (A) 0.1 k/uL (0-0.7); Eosinophils % (A) 1 %; HCT 45.1 % (34.0-46.0); Lymphocytes # (A) 3.1 k/uL (1.0-4.8); Lymphocytes % (A) 37 %; MCH 28.9 pg (25.0-35.0); MCHC 31.2 g/dL (31.0-37.0); MCV 92.7 fL (80.0-100.0); Monocytes # (A) 0.3 k/uL (0-1.0); Monocytes % (A) 3 %; Neutrophils # (A) 4.7 k/uL (1.3-7.7); Neutrophils % (A) 55 %; Platelet Count 183 k/uL (150-450); RBC 4.86 m/uL (3.80-5.40); RDW 12.5 % (11.5-15.5); WBC 8.4 k/uL (3.8-10.6)
[2023-10-09 19:35] LABS: Appearance,Urine Clear (Clear); Bilirubin,Urine Negative (Negative); Blood,Urine Moderate (Negative); Color,Urine Colorless; Glucose,Urine (UA) Negative (Negative); Ketones,Urine Negative (Negative); Leukocyte Esterase,Urine Small (Negative); Mucus,Urine Rare /hpf; Nitrite,Urine Negative (Negative); Protein,Urine Negative (Negative); RBC,Urine 7 /hpf (0-5); Specific Gravity,Urine 1.021 (1.001-1.035); Squamous Epithelial Cell,Urine 1 /hpf (0-4); Urobilinogen,Urine <2.0 mg/dL (<2.0); WBC,Urine 3 /hpf (0-5)
--- NOTE | 2023-10-09 19:38 | US ---
EXAMINATION TYPE: US transvaginal DATE OF EXAM: 10/09/2023 COMPARISON: CT 12/04/2021 CLINICAL INDICATION: Female, 28 years old with history of history of ovarian cyst, eval for torsion; Patient states hx of ovarian cyst. States that she is having abdominal pain. Has irregular cycles due to oral control, last cycle was around 2 months ago. Pain is worse on the left side. Light spo tting. TECHNIQUE: Transvaginal (TV). . Transvaginal sonographic images were medically necessary to better assess the following anatomy: Ovaries Date of LMP: Unknown, irregular due to oral control EXAM MEASUREMENTS: Uterus: 7.3 x 3.2 x 4.0 cm Endometrial Stripe: 0.6 cm Right Ovary: unable to visualize due to overlying bowel Left Ovary: 2.2 x 1.1 x 1.5 cm Limited examination due to overlying bowel gas 1. Uterus: Anteverted wnl as best seen 2. Endometrium: wnl as best seen 3. Right Ovary: Obscured by overlying bowel gas 4. Left Ovary: wnl as best seen Spectral, color and waveform doppler imaging shows good arterial and venous flow within the ovaries ; there is no evidence for ovarian torsion. 5. Bilateral Adnexa: Obscured by overlying bowel gas 6. Posterior cul-de-sac: No free fluid seen IMPRESSION: 1. Normal uterus and endometrium. 2. No free fluid in the cul-de-sac. 3. Normal left ovary without torsion or mass. 4. Right ovary obscured by bowel gas.
[2023-10-09 19:42] LABS: ALT 17 U/L (4-34); African American GFR (CKD) >90 (>60 ml/min/1.73 sqM); Albumin 4.2 g/dL (3.5-5.0); Amylase 86 U/L (30-110); Anion Gap 11 mmol/L; Blood Urea Nitrogen 11 mg/dL (7-17); Calcium 9.3 mg/dL (8.4-10.2); Carbon Dioxide 17 mmol/L (22-30); Chloride 110 mmol/L (98-107); Glucose 70 mg/dL (74-99); Lipase 173 U/L (23-300); Non-African American GFR(CKD) >90 (>60 ml/min/1.73 sqM); Sodium 138 mmol/L (137-145); Total Bilirubin 0.9 mg/dL (0.2-1.3); Total Protein 7.1 g/dL (6.3-8.2)
[2023-10-09 19:46] LABS: AST 33 U/L (14-36); Alkaline Phosphatase 52 U/L (38-126)
[2023-10-09] MEDS: IBUPROFEN 800 MG TAB PO STA (20:14)
[2023-10-09] MEDS: ONDANSETRON ODT 4 MG TAB PO STA (20:14)
--- NOTE | 2023-10-09 20:24 | ED ---
General Adult HPI - General Chief complaint: Abdominal Pain Stated complaint: Abd Pain Time Seen by Provider: 10/09/23 17:21 Source: patient, RN notes reviewed, old records reviewed Mode of arrival: ambulatory - History of Present Illness Initial comments: Patient is a 28-year-old female with past medical history remarkable for symptomatic ovarian cysts presents emergency department complaining of lower abdominal pain consistent with ovarian cyst pain. States she was recently switched to a different control as well. Does not believe she is . Has noticed some vaginal spotting for multiple weeks. No vomiting or diarrhea. No dysuria or hematuria. No vaginal discharge otherwise. No history of STDs. Thinks this is just her ovarian cyst pain but is uncertain and presents for further evaluation at this time. - Related Data Home Medications Medication Instructions Recorded Confirmed Albuterol Inhaler [Ventolin Hfa 1 - 2 puff INHALATION RT-QID PRN 09/04/18 09/04/18 Inhaler] Setlakin 0.15/0.03 1 tab PO DAILY 09/04/18 09/04/18 Previous Rx's Medication Instructions Recorded Dextroamphetamine/Amphetamine 5 mg PO DAILY 30 Days #30 tablet 12/14/22 [Adderall] Allergies Allergy/AdvReac Type Severity Reaction Status Date / Time clindamycin Allergy Dyspnea Verified 10/09/23 17:07 Penicillins Allergy Dyspnea Verified 10/09/23 17:07 sulfamethoxazole Allergy Dyspnea Verified 10/09/23 17:07 [From Bactrim] trimethoprim [From Bactrim] Allergy Dyspnea Verified 10/09/23 17:07 prednisone AdvReac Confusion Verified 10/09/23 17:07 Review of Systems ROS Statement: Those systems with pertinent positive or pertinent negative responses have been documented in the HPI. Review of Systems: CONST: Denies fever EYES: Denies blurry vision ENT: Denies nasal congestion C/V: Denies Chest pain RESP: Denies shortness of breath GI: Endorses abdominal pain : Endorses vaginal bleeding for weeks since switching controls SKIN: Denies rash. MSK: Denies joint pain. NEURO: Denies headache ROS Other: All systems not noted in ROS Statement are negative. Past Medical History Past Medical History: Asthma Additional Past Medical History / Comment(s): fibromyaliga. Menners. spinal issue. narcolepsy. Arthritis History of Any Multi-Drug Resistant Organisms: None Reported Past Surgical History: No Surgical Hx Reported Additional Past Surgical History / Comment(s): dental surgery Past Anesthesia/Blood Transfusion Reactions: Unable to Obtain Additional Past Anesthesia/Blood Transfusion Reaction / Comment(s): Pt has never had surgery or blood transfusion Past Psychological History: Anxiety, Depression Smoking Status: Never smoker Past Alcohol Use History: Rare Past Drug Use History: Marijuana - Past Family History Mother Family Medical History: Asthma, Fibromyalgia General Exam - General Exam Comments Initial Comments: General: Appears in no acute distress. HEAD: Normal with no signs of head trauma. EYES: EOMI ENT: Hearing grossly intact, normal oropharynx. RESPIRATORY: Clear breath sounds bilaterally. No wheezes, rales, or rhonchi. C/V: Regular rate and rhythm. S1 and S2 auscultated, peripheral pulses 2+ and intact throughout ABD: Abdomen soft, nondistended. Mild tenderness to palpation of the left lower quadrant. No guarding or rebound tenderness. No peritoneal signs. EXT: Normal range of motion, no obvious deformity SKIN: No rashes or lesions observed on exposed skin. NEURO: Alert and oriented x 4. Course Vital Signs 10/09/23 17:02 Temperature 98.4 F Pulse Rate 98 Respiratory 18 Rate Blood Pressure 129/87 O2 Sat by Pulse 100 Oximetry Medical Decision Making - Medical Decision Making Was pt. sent in by a medical professional or institution ([facility], [facility] [employer]TENNA INSTALLER, urgent care, hospital, or fci...) When possible be specific @ -No Did you speak to anyone other than the patient for history (EMS, parent, family, police, friend...)? What history was obtained from this source @ -No Did you review nursing and triage notes (agree or disagree)? Why? @ -I reviewed and agree with nursing and triage notes Were old charts reviewed (outside hosp., previous admission, EMS record, old EKG, old radiological studies, urgent care reports/EKG's, fci records)? Report findings @ -No old charts were reviewed Differential Diagnosis (chest pain, altered mental status, abdominal pain women, abdominal pain men, vaginal bleeding, weakness, fever, dyspnea, syncope, headache, dizziness, GI bleed, back pain, seizure, CVA, palpatations, mental health, musculoskeletal)? @ -Differential Abdominal Pain Women: Appendicitis, Cholecystitis, diverticulosis, ischemic bowel, pancreatitis, hepatitis, UTI, gastroenteritis, AAA, incarcerated hernia, bowel obstruction, constipation, inflammatory bowel, hepatitis, peptic ulcer disease, splenic infarction, perforated viscus, vulvitis, ovarian torsion, PID, kidney stone, placenta abruption, this is not meant to be an all-inclusive list EKG interpreted by me (3pts min.). @ -None done X-rays interpreted by me (1pt min.). @ -None done CT interpreted by me (1pt min.). @ -None done U/S interpreted by me (1pt. min.). @ -Ultrasound was complicated by bowel gas however no obvious ovarian torsion on the left and no obvious ovarian cyst present in either. What testing was considered but not performed or refused? (CT, X-rays, U/S, labs)? Why? @ -Considered CT imaging however patient declines and would like to defer at this time. I believe this is reasonable as patient's labs are unremarkable. She is feeling improved as well. What meds were considered but not given or refused? Why? @ -I offered IV fluids but patient does not wish to have a IV placed. Will therefore treat only with oral meds. Did you discuss the management of the patient with other professionals (bonny rojas i.e. , PA, RADIO ANTENNA INSTALLER, lab, RT, psych nurse, social security specialist, clinical provider trainer, teacher, campus safety officer, pillowcase cutter)? Give summary @ -No Was smoking cessation discussed for >3mins.? @ -No Was critical care preformed (if so, how long)? @ -No Were there social determinants of health that impacted care today? How? (Homelessness, low income, unemployed, alcoholism, drug addiction, transportation, low edu. Level, literacy, decrease access to med. care, half-way, rehab)? @ -No Was there de-escalation of care discussed even if they declined (Discuss DNR or withdrawal of care, Hospice)? DNR status @ -No What co-morbidities impacted this encounter? (DM, HTN, Smoking, COPD, CAD, Cancer, CVA, ARF, Chemo, Hep., AIDS, mental health diagnosis, sleep apnea, morbid obesity)? @ -None Was patient admitted / discharged? Hospital course, mention meds given and route, prescriptions, significant lab abnormalities, going to OR and other pertinent info. @ -Based on patient's presentation and physical exam, presents emergency department complaining of abdominal pain. Thinks is it is ovarian cyst pain but wants to be evaluated. Has had weeks of vaginal bleeding as well that is just spotting since she switched her control regimen. Presents for further evaluation. Vital signs within acceptable limits. She is symptomatically treat with oral meds if she refuses IV. Laboratory studies are relatively unremarkable. Urinalysis shows blood but no evidence of infection. Ultrasound shows no eviden ce of torsion or ovarian cyst. On reevaluation, patient is feeling improved. We have no clear answer for her symptoms and I did offer CT imaging at this time but patient declines. If she is feeling improved she will defer at this time and follow-up with her SCRAP DROP CRANE OPERATOR. She was in agreement this plan. I am in agreement this plan and think it is reasonable as workup is unremarkable and she is feeling improved. I instructed the patient to follow up with their PCP in the next 1-3 days. I explained that the patient should return to the emergency department if they experience any worsening symptoms. Strict return precautions were discussed with the patient. The patient expressed understanding of these instructions. I answered all questions that the patient had. The patient was discharged home in good condition with their prescriptions and follow up information. Undiagnosed new problem with uncertain prognosis? @ -No Drug Therapy requiring intensive monitoring for toxicity (Heparin, Nitro, Insulin, Cardizem)? @ -No Were any procedures done? @ -No Diagnosis/symptom? @ -Abdominal pain of unknown etiology Acute, or Chronic, or Acute on Chronic? @ -Acute Uncomplicated (without systemic symptoms) or Complicated (systemic symptoms)? @ -Complicated Side effects of treatment? @ -No Exacerbation, Progression, or Severe Exacerbation? @ -No Poses a threat to life or bodily function? How? (Chest pain, [place], [place], pneumonia, PE, COPD, DKA, ARF, appy, cholecystitis, CVA, Diverticulitis, Homicidal, Suicidal, threat to staff... and all critical care pts) @ -Unlikely - Lab Data Result diagrams: 10/09/23 19:02 10/09/23 19:02 Lab Results 10/09/23 10/09/23 10/09/23 Range/Units 19:02 19:02 19:02 WBC 8.4 (3.8-10.6) k/uL RBC 4.86 (3.80-5.40) m/uL Hgb 14.0 (11.4-16.0) gm/dL Hct 45.1 (34.0-46.0) % MCV 92.7 (80.0-100.0) fL MCH 28.9 (25.0-35.0) pg MCHC 31.2 (31.0-37.0) g/dL RDW 12.5 (11.5-15.5) % Plt Count 183 (150-450) k/uL MPV 8.0 Neutrophils % 55 % Lymphocytes % 37 % Monocytes % 3 % Eosinophils % 1 % Basophils % 1 % Neutrophils # 4.7 (1.3-7.7) k/uL Lymphocytes # 3.1 (1.0-4.8) k/uL Monocytes # 0.3 (0-1.0) k/uL Eosinophils # 0.1 (0-0.7) k/uL Basophils # 0.1 (0-0.2) k/uL Sodium 138 (137-145) mmol/L Potassium 4.0 (3.5-5.1) mmol/L Chloride 110 H (98-107) mmol/L Carbon Dioxide 17 L (22-30) mmol/L Anion Gap 11 mmol/L BUN 11 (7-17) mg/dL Creatinine 0.63 (0.52-1.04) mg/dL Est GFR (CKD-EPI)AfAm >90 (>60 ml/min/1.73 sqM) Est GFR (CKD-EPI)NonAf >90 (>60 ml/min/1.73 sqM) Glucose 70 L (74-99) mg/dL Calcium 9.3 (8.4-10.2) mg/dL Total Bilirubin 0.9 (0.2-1.3) mg/dL AST 33 (14-36) U/L ALT 17 (4-34) U/L Alkaline Phosphatase 52 (38-126) U/L Total Protein 7.1 (6.3-8.2) g/dL Albumin 4.2 (3.5-5.0) g/dL Amylase 86 (30-110) U/L Lipase 173 (23-300) U/L Urine Color Colorless Urine Appearance Clear (Clear) Urine pH 6.0 (5.0-8.0) Ur Specific [place] 1.021 (1.001-1.035) Urine Protein Negative (Negative) Urine Glucose (UA) Negative (Negative) Urine Ketones Negative (Negative) Urine Blood Moderate H (Negative) Urine Nitrite Negative (Negative) Urine Bilirubin Negative (Negative) Urine Urobilinogen <2.0 (<2.0) mg/dL Ur Leukocyte Esterase Small H (Negative) Urine RBC 7 H (0-5) /hpf Urine WBC 3 (0-5) /hpf Ur Squamous Epith Cells 1 (0-4) /hpf Urine Mucus Rare H (None) /hpf Urine HCG, Qual (Not Detectd) 10/09/23 Range/Units 19:02 WBC (3.8-10.6) k/uL RBC (3.80-5.40) m/uL Hgb (11.4-16.0) gm/dL Hct (34.0-46.0) % MCV (80.0-100.0) fL MCH (25.0-35.0) pg MCHC (31.0-37.0) g/dL RDW (11.5-15.5) % Plt Count (150-450) k/uL MPV Neutrophils % % Lymphocytes % % Monocytes % % Eosinophils % % Basophils % % Neutrophils # (1.3-7.7) k/uL Lymphocytes # (1.0-4.8) k/uL Monocytes # (0-1.0) k/uL Eosinophils # (0-0.7) k/uL Basophils # (0-0.2) k/uL Sodium (137-145) mmol/L Potassium (3.5-5.1) mmol/L Chloride (98-107) mmol/L Carbon Dioxide (22-30) mmol/L Anion Gap mmol/L BUN (7-17) mg/dL Creatinine (0.52-1.04) mg/dL Est GFR (CKD-EPI)AfAm (>60 ml/min/1.73 sqM) Est GFR (CKD-EPI)NonAf (>60 ml/min/1.73 sqM) Glucose (74-99) mg/dL Calcium (8.4-10.2) mg/dL Total Bilirubin (0.2-1.3) mg/dL AST (14-36) U/L ALT (4-34) U/L Alkaline Phosphatase (38-126) U/L Total Protein (6.3-8.2) g/dL Albumin (3.5-5.0) g/dL Amylase (30-110) U/L Lipase (23-300) U/L Urine Color Urine Appearance (Clear) Urine pH (5.0-8.0) Ur Specific [place] (1.001-1.035) Urine Protein (Negative) Urine Glucose (UA) (Negative) Urine Ketones (Negative) Urine Blood (Negative) Urine Nitrite (Negative) Urine Bilirubin (Negative) Urine Urobilinogen (<2.0) mg/dL Ur Leukocyte Esterase (Negative) Urine RBC (0-5) /hpf Urine WBC (0-5) /hpf Ur Squamous Epith Cells (0-4) /hpf Urine Mucus (None) /hpf Urine HCG, Qual Not Detected (Not Detectd) Disposition Clinical Impression: Abdominal pain of unknown etiology Disposition: HOME SELF-CARE Condition: Good Instructions (If sedation given, give patient instructions): Abdominal Pain (ED) Is patient prescribed a controlled substance at d/c from ED?: No Referrals: Carolin Luke MD [Primary Care Provider] - 1-2 days Time of Disposition: 20:24
[2023-10-09 21:37] VITALS: BP 131/74; PULSE 88; RESP 20; TEMP 98.2
== END 2023-10-09 21:37 | disposition home or self-care (01) ==
LOC: EC 16:14
DX: R10.32 Left lower quadrant pain (principal); Z88.0 Allergy status to penicillin; Z88.1 Allergy status to other antibiotic agents; Z88.2 Allergy status to sulfonamides; Z88.8 Allergy status to other drugs, medicaments and biological substances
CPT/HCPCS: 36415; 76830; 80053; 81001; 81025; 82150; 83690; 85025; 93976; 99284

== ENCOUNTER → 2023-10-18 | Outpatient (CLI) | payer OTHER ==
[2023-10-18 17:09] VITALS: BP 118/79; PULSE 93; RESP 14; TEMP 98.3
--- NOTE | 2023-10-18 17:34 | P.PROGSL ---
Subjective DATE: 10/18/2023 FOLLOW UP VISIT. Patient returned to sleep center for follow-up visit related to treatment of significant excessive daytime sleepiness secondary to narcolepsy. Patient is on treatment with Adderall 2.5 mg twice a day. With this regimen alertness is on control. No any side effects. . [place] sleepiness scale is 10, which is borderline. MEDICATIONS: Please see below During physical exam: GENERAL: A pleasant patient without any distress. VITAL SIGNS: Please see below. HEENT: PERRLA, EOMI. NECK: Supple. No JVD. LUNGS: Clear to percussion and to auscultation. Good air exchange. No wheezing or rhonchi. HEART: S1, S2 regular. ABDOMEN: Soft and nontender. EXTREMITIES: No clubbing or cyanosis. OIL TRANSPORT DRIVER: Awake, alert, and oriented x3. No focal deficit. Impressions: 1. Narcolepsy type II. On MSLT sleep latency 6.4 minutes with 2 sleep onset REM. 2. History of headaches. 3. History of fibromyalgia. 4. Asthma. 5. History of sinusitis. 6. History of anxiety. 7. History of depression. 8. History of Mnire's disease. Plan: 1. Patient will continue treatment with Adderall 2.5 mg (half of tablet of 5 mg) twice a day. 2. Sleep hygiene with regular time in bed for at least 8 hours. 3. Daytime naps permitted 4. Precautions related to driving. No driving if feel any sleepiness. Patient is aware about civil and criminal liability for unsafe driving, promised to follow recommendations. 5. Follow up visit in 4-6 months or earlier if patient has any problems. Thank you very much for allowing me to participate in the management of your patient. Harshal Elaine MD, PhD, FAASM. Diplomat of [employer], Sleep Medicine Board by [employer] Operator of [facility] [place] Objective - Vital Signs Vital Signs: Vital Signs Temp 98.3 F 10/18/23 17:08 Pulse 93 10/18/23 17:08 Resp 14 10/18/23 17:08 BP 118/79 10/18/23 17:08 Pulse Ox 99 10/18/23 17:08 FiO2 Intake & Output 10/17/23 10/18/23 10/18/23 18:59 06:59 18:59 Weight 63.106 kg Home Medications: Home Medications Medication Instructions Recorded Confirmed Type Albuterol Inhaler [Ventolin Hfa 1 - 2 puff INHALATION RT-QID PRN 09/04/18 09/04/18 History Inhaler] Setlakin 0.15/0.03 1 tab PO DAILY 09/04/18 09/04/18 History Dextroamphetamine/Amphetamine 2.5 mg PO BID 10/18/23 10/18/23 History [Adderall] Famotidine 20 mg PO BID 10/18/23 10/18/23 History
== END ==
LOC: 3 N SLEEP 16:16
PROVIDERS: ATTEND Internal Medicine
DX: G47.419 Narcolepsy without cataplexy (principal); J45.909 Unspecified asthma, uncomplicated; G47.52 REM sleep behavior disorder; Z86.59 Personal history of other mental and behavioral disorders; Z87.09 Personal history of other diseases of the respiratory system; Z86.69 Personal history of other diseases of the nervous system and sense organs; Z87.39 Personal history of other diseases of the musculoskeletal system and connective tissue; Z79.899 Other long term (current) drug therapy; Z88.1 Allergy status to other antibiotic agents; Z88.0 Allergy status to penicillin; Z88.2 Allergy status to sulfonamides; Z88.8 Allergy status to other drugs, medicaments and biological substances
CPT/HCPCS: 99212

== ENCOUNTER → 2024-10-09 | Outpatient (CLI) | payer OTHER ==
[2024-10-09 16:55] VITALS: BP 108/67; PULSE 88; RESP 16; TEMP 98.2
--- NOTE | 2024-10-09 17:18 | P.PROGSL ---
Subjective DATE: 10/09/2024 FOLLOW UP VISIT. Patient returned to sleep center for follow-up visit related to treatment of significant excessive daytime sleepiness secondary to narcolepsy. Patient is on treatment with Adderall 2.5 mg twice a day. Regimen patient alertness is on control, no any side effects . [place] sleepiness scale is 14. During the night patient has episodes of movements, possibly out of dream movements and for last several months it was significant increasing of this movements. MEDICATIONS:1. Adderall 2.5 mg twice a day 2. Sumatriptan 50 mg as needed 3. Propranolol 140 mg twice a day 4. Famotidine 20 mg twice a day 5. Sertraline 50 mg half of the tablet once a day During physical exam: GENERAL: A pleasant patient without any distress. VITAL SIGNS: Please see below, BP 108/67, HR 88. HEENT: PERRLA, EOMI. NECK: Supple. No JVD. LUNGS: Clear to percussion and to auscultation. Good air exchange. No wheezing or rhonchi. HEART: S1, S2 regular. ABDOMEN: Soft and nontender. EXTREMITIES: No clubbing or cyanosis. DIRECTOR PROCESS: Awake, alert, and oriented x3. No focal deficit. Impressions: 1. Narcolepsy type II. During MSLT mean sleep latency was 6.4 minutes and 2 sleep onset REM periods have been documented 2. Episodes of movements during the sleep, possibly out of dream movements. 3. Fibromyalgia. 4. Asthma. 5. History of sinusitis. 6. History of anxiety. 7. History of depression. 8. History of Mnire disease. Plan: 1. Patient will continue treatment with Adderall 2.5 mg twice a day. Patient will start clonazepam 0.5 mg at bedtime to prevent any abnormal movements during the sleep. 2. Sleep hygiene with regular time in bed for at least 8 hours. 3. Daytime naps permitted 4. Precautions related to driving. No driving if feel any sleepiness. Patient is aware about civil and criminal liability for unsafe driving, promised to follow recommendations. 5. Follow up visit in 2 months or earlier if patient has any problems. Thank you very much for allowing me to participate in the management of your patient. Harshal Elaine MD, PhD, FAASM. Diplomat of [place] [employer], Sleep Medicine Board by [place] [employer] Clinical Educator of [facility] [place] Objective - Vital Signs Vital Signs: Vital Signs Temp 98.2 F 10/09/24 16:54 Pulse 88 10/09/24 16:54 Resp 16 10/09/24 16:54 BP 108/67 10/09/24 16:54 Pulse Ox 97 10/09/24 16:54 FiO2 Home Medications: Home Medications Medication Instructions Recorded Confirmed Type Albuterol Inhaler [Ventolin Hfa 1 - 2 puff INHALATION RT-QID PRN 09/04/18 09/04/18 History Inhaler] Setlakin 0.15/0.03 1 tab PO DAILY 09/04/18 09/04/18 History Dextroamphetamine/Amphetamine 2.5 mg PO BID 10/18/23 10/18/23 History [Adderall] Famotidine 20 mg PO BID 10/18/23 10/18/23 History
== END ==
LOC: 3 N SLEEP 16:34
PROVIDERS: ATTEND Internal Medicine
DX: G47.419 Narcolepsy without cataplexy (principal); M79.7 Fibromyalgia; J45.909 Unspecified asthma, uncomplicated; F12.90 Cannabis use, unspecified, uncomplicated; Z86.59 Personal history of other mental and behavioral disorders; Z86.69 Personal history of other diseases of the nervous system and sense organs; Z88.0 Allergy status to penicillin; Z88.1 Allergy status to other antibiotic agents; Z88.2 Allergy status to sulfonamides; Z88.3 Allergy status to other anti-infective agents; Z88.8 Allergy status to other drugs, medicaments and biological substances
CPT/HCPCS: 99212

== ENCOUNTER → 2024-10-31 | Outpatient (CLI) | payer OTHER ==
[2024-10-31 15:04] VITALS: BP 105/70; PULSE 88; RESP 16; TEMP 97.8
--- NOTE | 2024-10-31 15:32 | P.PROGSL ---
Subjective DATE: 10/31/2024 FOLLOW UP VISIT. Patient returned to sleep center for follow-up visit related to treatment of significant excessive daytime sleepiness secondary to narcolepsy. Presently patient is on Adderall 2.5 mg twice a day. With this regimen and your symptoms on control, no side effects. [place] sleepiness scale is 13. During previous visit patient was started on clonazepam 0.5 mg at bedtime with permission to increase dose to 0.75 mg to prevent any abnormal out of the movements during sleep. Order dose 0.5 mg patient improved but still has some episodes of movements, with dose of 0.75 mg sleeps well without any out of dream movements episodes. MEDICATIONS: Please see below During physical exam: GENERAL: A pleasant patient without any distress. VITAL SIGNS: Please see below. HEENT: [place]. NECK: Supple. No JVD. LUNGS: Clear to percussion and to auscultation. Good air exchange. No wheezing or rhonchi. HEART: S1, S2 regular. ABDOMEN: Soft and nontender. EXTREMITIES: No clubbing or cyanosis. GEOGRAPHICAL HISTORIAN: Awake, alert, and oriented x3. No focal deficit. Impressions: 1. Narcolepsy type II confirmed by MSLT with mean sleep latency 6.4 minutes and 2 sleep onset REM. 2. Episodes of out of dream movements during sleep, presently uncontrolled with clonazepam. 3. History of fibromyalgia. 4. Asthma. 5. History of anxiety. 6. History of depression. 7. History of Mnire disease. 8. History of sinusitis. Plan: 1. Patient will continue treatment with Adderall 2.5 mg twice a day. Clonazepam dose will be increased to 0.75 mg at bedtime. 2. Sleep hygiene with regular time in bed for at least 8 hours. 3. Daytime naps permitted 4. Precautions related to driving. No driving if feel any sleepiness. Patient is aware about civil and criminal liability for unsafe driving, promised to follow recommendations. 5. Follow up visit in 6 months or earlier if patient has any problems. Thank you very much for allowing me to participate in the management of your patient. Harshal Elaine MD, PhD, FAASM. Diplomat of [employer], Sleep Medicine Board by [employer] Tank Crewmember of [facility] [place] Objective - Vital Signs Vital Signs: Vital Signs Temp 97.8 F 10/31/24 14:52 Pulse 88 10/31/24 14:52 Resp 16 10/31/24 14:52 BP 105/70 10/31/24 14:52 Pulse Ox 99 10/31/24 14:52 FiO2 Intake & Output 10/30/24 10/31/24 10/31/24 18:59 06:59 18:59 Weight 60.328 kg Home Medications: Home Medications Medication Instructions Recorded Confirmed Type Albuterol Inhaler [Ventolin Hfa 1 - 2 puff INHALATION RT-QID PRN 09/04/18 10/31/24 History Inhaler] Setlakin 0.15/0.03 1 tab PO DAILY 09/04/18 10/31/24 History Dextroamphetamine/Amphetamine 2.5 mg PO BID 10/18/23 10/31/24 History [Adderall] Famotidine 20 mg PO BID 10/18/23 10/31/24 History Propranolol [Inderal] 20 mg PO DIRECTED PRN 10/31/24 10/31/24 History SUMAtriptan succinate 50 mg PO DIRECTED PRN 10/31/24 10/31/24 History clonazePAM 0.5 mg PO DAILY 10/31/24 10/31/24 History
== END ==
LOC: 3 N SLEEP 14:44
PROVIDERS: ATTEND Internal Medicine
DX: G47.419 Narcolepsy without cataplexy (principal); J45.909 Unspecified asthma, uncomplicated; F41.9 Anxiety disorder, unspecified; F32.A Depression, unspecified; F12.90 Cannabis use, unspecified, uncomplicated; Z87.39 Personal history of other diseases of the musculoskeletal system and connective tissue; Z88.0 Allergy status to penicillin; Z88.2 Allergy status to sulfonamides; Z88.1 Allergy status to other antibiotic agents; Z88.8 Allergy status to other drugs, medicaments and biological substances
CPT/HCPCS: 99212

== ENCOUNTER → 2024-10-31 | Outpatient (CLI) | payer OTHER ==
[2024-10-31 20:37] LABS: Urine Alcohol Negative (Negative); Urine Barbiturate Negative (Negative)
== END | disposition home or self-care (01) ==
LOC: LABWHC1 15:34
PROVIDERS: ATTEND Internal Medicine
DX: G47.419 Narcolepsy without cataplexy (principal)
CPT/HCPCS: 80306